=== PATIENT | female | born 2000 | race Caucasian/White ===

== ENCOUNTER 2024-12-23 08:34 | Outpatient (RCR) | payer BC, OTHER, SELFPAY ==
[2024-12-23 09:00] VITALS: BP 116/77; PULSE 104; TEMP 37; O2SAT 99
[2024-12-23] MEDS: RHO(D) IMMUNE GLOBULIN 1,500 UNIT SYRINGE 1500 UNIT IM (09:46)
== END 2024-12-30 10:25 | disposition home or self-care (01) ==
LOC: LAB 08:34
PROVIDERS: PCP Family Medicine; Visit Provider Midwife
DX: Z51.81 Encounter for therapeutic drug level monitoring (principal); O09.893 Supervision of other high risk pregnancies, third trimester; Z3A.28 28 weeks gestation of pregnancy
CPT/HCPCS: 36415; 86850; 86900; 86901; 96372; J2791

== ENCOUNTER 2025-02-26 13:30 | Inpatient (IN) | payer BC, OTHER, SELFPAY ==
[2025-02-26] VITALS (9 sets, daily range): BP systolic 109–136; BP diastolic 65–87; PULSE 80–116; TEMP 36.8
--- NOTE | 2025-02-26 13:35 | US_ITS ---
[place] [id number] Patient Name: ARON HODGES MRN: [id number] date: 2000 Sex: F Assigned Patient Location: [facility] Current Patient Location: [facility] Accession/Order Number: [id number] Exam Date: 02/26/2025 15:02 Report Date: 02/26/2025 15:03 At the request of: JUSTIN SPENCE APRN CNMarimar Procedure: US OB BPP w non-stress Ultrasound biophysical profile COMPARISON: Elevated blood pressure There is adequate breathing movement, gross body movement, tone and amniotic fluid volume for total score of 8 out of 8. The amniotic fluid index is 18.3 cm within normal limits. The heart rate is 130 bpm. US/US OB BPP w non-stress IMPRESSION: Adequate ultrasound biophysical profile Impression dictated by: Otf Hou M.D. 02/26/2025 3:03 PM Dictation Location: [employer] Electronically authenticated by: [id number] Y Date: 02/26/2025 15:03
--- OUTSIDE RECORDS SUMMARY | 2025-02-26 13:35 | XMS_ITS | CCD ---
Author Organization [facility] Care Team Providers Care Punch Hand Name Role Phone Martinez POST FORM REMOVER, Berta Jefferson Unavailable Navin WHITMAN, Marysol Stanley Primary Care Provider David CABRAL, Justin Fields Unavailable FLORO, JUSTIN Donnie Attending Unavailable FLORO, JUSTIN L Referring Unavailable FLORO, JUSTIN L Attending Unavailable FLORO, JUSTIN L Attending Unavailable FLORO, JUSTIN L Referring Unavailable FLORO, JUSTIN L Attending Unavailable PETITTI, JULIA Baer Attending Unavailable BERTA KEVIN Attending Unavailable FLORO, JUSTIN Fields Attending Unavailable PETITTI, JULIA Baer Attending Unavailable FLORO, JUSTIN L Attending Unavailable FLORO, JUSTIN L Referring Unavailable FLORO, JUSTIN L Attending Unavailable FLORO, JUSTIN L Attending Unavailable FLORO, JUSTIN L Attending Unavailable FLORO, JUSTIN L Attending Unavailable FLORO, JUSTIN L Referring Unavailable Medications Current Medications Medication Drug Class(es) Dates Sig (Normalized) Sig (Original) docusate sodium 100 mg oral capsule (10 sources) Start: 01-21-2025 End: 05-21-2025 take 1 capsule by mouth in the morning docusate sodium (Colace) 100 MG capsule Indications: Anemia during in third trimester Take 1 capsule (100 mg) by mouth in the morning and 1 capsule (100 mg) before bedtime. 60 capsule 3 01/21/2025 05/21/2025 Active ferrous sulfate 325 mg delayed release oral tablet (10 sources) Start: 01-21-2025 End: 01-21-2026 take 1 tablet by mouth in the morning ferrous sulfate (Fe Tabs) 325 (65 Fe) MG EC tablet Indications: Anemia during in third trimester Take 1 tablet (325 mg) by mouth in the morning and 1 tablet (325 mg) in the evening. Take with meals. Do not crush, chew, or split. 60 tablet 11 01/21/2025 01/21/2026 Active fluticasone propionate 0.05 mg/actuat metered dose nasal spray (2 sources) Corticosteroid Start: 11-21-2023 take 2 spray(s) nasal route in the morning fluticasone (Flonase) 50 MCG/ACT nasal spray Indications: Dysfunction of both eustachian tubes SPRAY 2 SPRAYS INTO EACH NOSTRIL IN THE MORNING SHAKE GENTLY/PRIME BEFORE 1ST USE&CLEAN TIP 48 mL 1 11/21/2023 Active Start: 10-30-2023 End: 11-21-2023 take 2 spray(s) nasal route in the morning fluticasone (Flonase) 50 MCG/ACT nasal spray Indications: Dysfunction of both eustachian tubes Administer 2 sprays into each nostril in the morning. Shake gently. Before first use, prime pump. After use, clean tip and replace cap.. 16 g 2 10/30/2023 11/21/2023 Discontinued levoFLOXacin 500 mg oral tablet (1 source) Quinolone Antimicrobial Start: 11-13-2023 End: 11-23-2023 take 1 tablet by mouth in the morning levoFLOXacin (Levaquin) 500 MG tablet Indications: Non-recurrent acute serous otitis media of left ear Take 1 tablet (500 mg) by mouth in the morning for 10 days. 10 tablet 0 11/13/2023 11/23/2023 Active Completed/Discontinued Medications Medication Drug Class(es) Dates Sig (Normalized) Sig (Original) cefuroxime 250 mg oral tablet (9 sources) Cephalosporin Antibacterial Start: 04-23-2024 End: 08-07-2024 take 1 tablet by mouth once daily cefuroxime (Ceftin) 250 MG tablet Indications: Acne vulgaris Take 1 tablet, by mouth, once daily, 30 days 30 tablet 11 04/23/2024 08/07/2024 Discontinued (Therapy completed) clindamycin 0.01 mg/mg topical gel (9 sources) Lincosamide Antibacterial Start: 04-23-2024 End: 08-07-2024 clindamycin (Clindagel) 1 % gel Indications: Acne vulgaris Apply thin layer to face, once daily in the morning, 30 day supply 60 g 11 04/23/2024 08/07/2024 Discontinued (Therapy completed) tretinoin 0.25 mg/ml topical cream (9 sources) Retinoid Start: 04-23-2024 End: 04-23-2025 tretinoin (Retin-A) 0.025 % cream Indications: Acne vulgaris Apply topically at bedtime Apply thin layer to face at bedtime 45 g 11 04/23/2024 08/07/2024 Discontinued (Therapy completed) Problems Active Problems Problem Classification Problem Date Documented Da te Episodic/Chronic Menstrual disorders (2 sources) Amenorrhea; Translations: [Amenorrhea, unspecified] 08-07-2024 Chronic Other complications of (2 sources) Finding related to ; Translations: [ related conditions, unspecified, second trimester] 09-25-2024 Episodic Other non-traumatic joint disorders (2 sources) Swollen ankle region; Translations: [Effusion, right ankle] 02-05-2025 Episodic Other non-traumatic joint disorders (2 sources) Ankle edema; Translations: [Effusion, unspecified ankle] 02-19-2025 Episodic Other conditions (2 sources) Oyegn-[id number] at regardless of gestation period; Translations: [Other heavy for gestational age ] 02-19-2025 Episodic Other and delivery including normal (20 sources) Second trimester ; Translations: [ test positive] 08-28-2024 Episodic Other screening for suspected conditions (not mental disorders or infectious disease) (4 sources) Cancer cervix screening status; Translations: [Encounter for screening for malignant neoplasm of cervix] 06-13-2024 Episodic Other skin disorders (2 sources) Acne vulgaris; Translations: [Acne vulgaris] 06-24-2024 Episodic Otitis media and related conditions (1 source) Dysfunction of bilateral eustachian tubes; Translations: [Unspecified Eustachian tube disorder, bilateral] 11-21-2023 Episodic Unclassified (20 sources) OB Reminders Onset: 08-08-2024 08-08-2024 Past or Other Problems Problem Classification Problem Date Documented Da te Episodic/Chronic NEGATED: Highlighted row has been ruled out!Unclassified (20 sources) No known active problems 06-24-2024 Results Test Name Value Interpretation Reference Range Facil ity US OB FOLLOW UP TRANSABDOMIN AL APPROACHon 01-08-2025 US OB FOLLOW UP TRANSABDOMINAL APPROACH TITLE OF EXAM: OB Ultrasound: REASON FOR EXAM: Growth. COMPARISON: 10/30/2024 TECHNIQUE: Grayscale and M-mode Doppler imaging is performed. FINDINGS: heart rate: 132 bpm DAVID: 15.2 cm (8.8-23.8) BPD: 7.6 cm HC: 27.8 cm AC: 28.3 cm FL: 6.2 cm GA for sonogram: 31.0 wk (28.6-33.5) Cervix length: 3.8 cm SHIN: 03/12/2025 Weight Estimate: Weight: 1863 gm / 4 lbs, 1 oz (8637-2216 gm) Hadlock Normal: 1759 gm (0250-3786 gm) Hadlock Wt%: 68% for 31.0 wks (GA Selected) 92% for 30.3 wks (LMP) LMP: 06/01/24 Age by LMP: 31 w 4 d Age Prior US: 21 w 4 d Age US Today: 31 w 3 d SHIN by LMP: 03/08/25 SHIN Prior US: 03/08/25 SHIN US Today: 03/09/25 Gestation: Single Position: Cephalic Placenta Location: Posterior Placental Grade: 1 Heart Rate: 132 bpm Cervical Length: 3.8 cm IMPRESSION: 1. Single intrauterine gestation in cephalic position with an estimated ultrasound age of 31 weeks 3 days. 2. Normal fluid volume. Placenta is visible posteriorly. Dictated and transcribed 01/09/25/dpd This report has been electronically signed and approved by the interpreting radiologist. Normal Not Available US OB 14+ WEEKS ANATOMY SCAN on 10-30-2024 US OB 14+ WEEKS ANATOMY SCAN TITLE OF EXAM: OB Ultrasound: REASON FOR EXAM: Growth. COMPARISON: 08/07/2024 TECHNIQUE: Grayscale and M-mode Doppler imaging is performed. FINDINGS: heart rate: 136 bpm DAVID: 14.4 cm (9.5-21.4) BPD: 5.2 cm HC: 19.2 cm AC: 16.4 cm FL: 3.6 cm GA for sonogram: 21.2 wk s (19.8-22.6) Cervix length: 4.1 cm SHIN: 03/11/2025 Weight Estimate: Weight: 425 gm / 0 lbs, 14 oz (363-487 gm) Hadlock Normal: 408 gm (338-477 gm) Hadlock Wt%: 64% for 21.1 wks ( GA selected) >97% for 20.3 wks (LMP) Placenta Location: Posterior, low lying 1.74 cm from cervix. Placental Grade: 0 Cervical Length: 4.09 cm Lateral Ventricles: Yes Cerebellum: Yes Cisterna Mag: Yes Orbits: Yes 4 Chamber heart: Yes LVOT: Yes Stomach: Yes Renals: Yes Cord Insert: Yes Heart Rate: 136 BPM 3 Vessel Cord: Yes Bladder: Yes Gender: Male 12 Long Bones: Yes Diaphragm: Yes RVOT: Yes Long Spine: Yes TRV Spine: Yes Somatic Movement: Yes IMPRESSION: Single live intrauterine with an estimated ultrasound age of 21 weeks 4 days. Low-lying posterior placenta. Normal anatomic survey as visualized. *This report is generated using voice recognition reporting (Sobrr). On occasion [employer] erroneously drops words from the report or replaces the spoken word with similar sounding words. Please call with any questions/concerns regarding this report.* Dictated and transcribed 10/30/24/dpd This report has been electronically signed and approved by the interpreting radiologist. Normal Not Available HCG ( test) Ql (U)o n 10-22-2024 Interpretation and review of laboratory results Abnormal [facility] Healthcare Preg Test, Ur Positive Negative [facility] Health care [facility] Healthcar e US OB < 14 WEEKS EARLYon US OB < 14 WEEKS EARLY TITLE OF EXAM: OB Ultrasound: REASON FOR EXAM: Dating, viability. TECHNIQUE: Grayscale imaging is performed. Measurements: heart rate: 165 bpm Sac: 4.4 cm CRL: 2.4 cm GA for sonogram: 9.1 wk (08.4-09.8) SHIN: 03/11/2025 Maternal Anatomy: Uterus: L x H x W 9.6 x 8.9 x 6.7 cm Cervix Length: 4.2 cm L x H x W (cm) Vol (cc) Ovaries: Left: 2.2 x 1.7 x 1.8 cm 3.5 CLINICAL SUMMARY: A single intrauterine is noted. heart is observed with a heart rate of 165 BPM. Yolk sac is identified and within normal limits. Dictated and transcribed 08/07/24/dpd This report has been electronically signed and approved by the interpreting radiologist. Electronically Signed Clay Carranza M.D. 2024-08-07 17:30:50 Normal Not Available HCG ( test) Ql (U)O rdered By: Fabiana Ramirez on 06-24-2024 Interpretation and review of laboratory results Normal [facility] Preg Test, Ur Negative [facility] Health care [facility] Healthcar e Vital Signs Date Time Vital Sign Value Performing Clinician Mis patel 02-19-2025 13:17-0400 Body mass index (BMI) [Ratio] 33.13 kg/m2 Justin Floro CNM Work Phone: [facility] 02-19-2025 13:17-040 Body weight 87.54 kg Justin Floro CNM Work Phone: [facility] 02-19-2025 13:17-0400 Diastolic blood pressure 80 mm[Hg] Justin Floro CNM Work Phone: [facility] 02-19-2025 13:17-0400 Systolic blood pressure 120 mm[Hg] Justin Floro CNM Work Phone: [facility] 02-05-2025 13:24-0400 Body mass index (BMI) [Ratio] 31.58 kg/m2 Justin Floro CNM Work Phone: [facility] 02-05-2025 13:24-0400 Body weight 83.46 kg Justin Floro CNM Work Phone: [facility] 02-05-2025 13:24-0400 Diastolic blood pressure 80 mm[Hg] Justin Floro CNM Work Phone: [facility] 02-05-2025 13:24-0400 Systolic blood pressure 120 mm[Hg] Justin Floro CNM Work Phone: [facility] 01-22-2025 13:17-0400 Body mass index (BMI) [Ratio] 30.21 kg/m2 Justin Floro CNM Work Phone: [facility] 01-22-2025 13:17-0400 Body weight 79.83 kg Justin Floro CNM Work Phone: [facility] 01-22-2025 13:17-0400 Diastolic blood pressure 70 mm[Hg] Justin Floro CNM Work Phone: [facility] 01-22-2025 13:17-0400 Systolic blood pressure 108 mm[Hg] Justin Floro CNM Work Phone: [facility] 11-27-2024 15:25-0500 Body mass index (BMI) [Ratio] 26.26 kg/m2 Justin Floro CNM Work Phone: [facility] 11-27-2024 15:25-0500 Body weight 69.4 kg Justin Floro CNM Work Phone: [facility] 11-27-2024 15:25-0500 Diastolic blood pressure 80 mm[Hg] Justni Floro CNM Work Phone: [facility] 11-27-2024 15:25-0500 Systolic blood pressure 120 mm[Hg] Justin Floro CNM Work Phone: [facility] 10-30-2024 10:53-0500 Body mass index (BMI) [Ratio] 24.89 kg/m2 Justin Floro CNM Work Phone: [facility] 10-30-2024 10:53-0500 Body weight 65.77 kg Justin Floro CNM Work Phone: [facility] 10-30-2024 10:53-0500 Diastolic blood pressure 70 mm[Hg] Justin Floro CNM Work Phone: [facility] 10-30-2024 10:53-0500 Systolic blood pressure 110 mm[Hg] Justin Floro CNM Work Phone: [facility] 09-25-2024 16:35-0500 Body mass index (BMI) [Ratio] 23.52 kg/m2 Justin Floro CNM Work Phone: [facility] 09-25-2024 16:35-0500 Body weight 62.14 kg Justin Floro CNM Work Phone: [facility] 09-25-2024 16:35-0500 Diastolic blood pressure 70 mm[Hg] Justin Floro CNM Work Phone: [facility] 09-25-2024 16:35-0500 Systolic blood pressure 110 mm[Hg] Justin Floro CNM Work Phone: [facility] 08-28-2024 09:04-0500 Body mass index (BMI) [Ratio] 22.31 kg/m2 Justin Floro CNM Work Phone: [facility] 08-28-2024 09:04-0500 Body weight 58.97 kg Justin Floro CNM Work Phone: [facility] 08-28-2024 09:04-0500 Diastolic blood pressure 70 mm[Hg] Justin Floro CNM Work Phone: [facility] 08-28-2024 09:04-0500 Systolic blood pressure 110 mm[Hg] Justin Floro CNM Work Phone: [facility] 06-13-2024 09:16-0400 Body mass index (BMI) [Ratio] 22.83 kg/m2 Justin Floro CNM Work Phone: [facility] 06-13-2024 09:16-0400 Body weight 60.33 kg Justin Floro CNM Work Phone: [facility] 06-13-2024 09:16-0400 Diastolic blood pressure 68 mm[Hg] Justin Floro CNM Work Phone: [facility] 06-13-2024 09:16-0400 Systolic blood pressure 110 mm[Hg] Justin Floro CNM Work Phone: [facility] Healthcare Encounters Encounter Date Encounter Type Care Provider Facility Start: 02-26-2025 End: 02-26-2025 Bamboo flowsheet Justin Donnie Floro CNM Work Phone: [facility] Start: 02-26-2025 End: 02-26-2025 Bamboo flowsheet Justin L Floro CNM Work Phone: [facility] Start: 02-19-2025 End: 02-19-2025 Bamboo flowsheet Justin L Floro CNM Work Phone: [facility] Start: 02-19-2025 End: 02-19-2025 Bamboo flowsheet Justin L Floro CNM Work Phone: [facility] Start: 02-19-2025 End: 02-19-2025 Subsequent care visit Justin L Floro CNM Work Phone: [facility] Comment on above: Encounter for prenat al care of first , third trimester (Primary Dx); screening for streptococcus B; Large for dates; Ankle edema Start: 02-19-2025 End: 02-19-2025 ambulatory JUSTIN L FLORO Not Available Start: 02-05-2025 End: 02-05-2025 Bamboo flowsheet Justin L Floro CNM Work Phone: [facility] Start: 02-05-2025 End: 02-05-2025 Bamboo flowsheet Justin L Floro CNM Work Phone: [facility] Start: 02-05-2025 End: 02-05-2025 Subsequent care visit Justin L Floro CNM Work Phone: [facility] Comment on above: Encounter for superv ision of other normal , third trimester (Primary Dx); Swelling of both ankles Start: 02-05-2025 End: 02-05-2025 ambulatory JUSTIN L FLORO Not Available Start: 01-22-2025 End: 01-22-2025 Bamboo flowsheet Justin L Floro CNM Work Phone: [facility] Start: 01-22-2025 End: 01-22-2025 Bamboo flowsheet Justin L Floro CNM Work Phone: [facility] Start: 01-22-2025 End: 01-22-2025 Subsequent care visit Justin L Floro CNM Work Phone: [facility] Comment on above: Encounter for superv ision of other normal , third trimester (Primary Dx) Start: 01-22-2025 End: 01-22-2025 ambulatory JUSTIN L FLORO Not Available Start: 01-08-2025 End: 01-08-2025 ambulatory JUSTIN L FLORO Not Available Start: 12-25-2024 End: 12-25-2024 ambulatory JUSTIN L FLORO Not Available Start: 11-27-2024 End: 11-27-2024 Subsequent care visit Justin L Floro CNM Work Phone: [facility] Comment on above: Encounter for prenat al care of first , second trimester (Primary Dx) Start: 11-27-2024 End: 11-27-2024 ambulatory JUSTIN L FLORO Not Available Start: 11-27-2024 End: 11-27-2024 Bamboo flowsheet Justin L Floro CNM Work Phone: [facility] Start: 11-27-2024 End: 11-27-2024 Bamboo flowsheet Justin L Floro CNM Work Phone: [facility] Start: 10-30-2024 End: 10-30-2024 Bamboo flowsheet Justin L Floro CNM Work Phone: [facility] Start: 10-30-2024 End: 10-30-2024 Bamboo flowsheet Justin L Floro CNM Work Phone: [facility] Start: 10-30-2024 End: 10-30-2024 Subsequent care visit Justin L Floro CNM Work Phone: [facility] Comment on above: Encounter for prenat al care of first , second trimester (Primary Dx) Start: 10-30-2024 End: 10-30-2024 ambulatory JUSTIN L FLORO Not Available Start: 09-25-2024 End: 09-25-2024 Subsequent care visit Justin Donnie Mattsono CNM Work Phone: [facility] Comment on above: Encounter for prenat al care of first , second trimester; examination or test, positive result; related condition in second trimester Start: 09-25-2024 End: 09-25-2024 ambulatory JUSTIN L FLORO Not Available Start: 09-25-2024 End: 09-25-2024 Bamboo flowsheet Justin L Floro CNM Work Phone: [facility] Start: 09-25-2024 End: 09-25-2024 Bamboo flowsheet Justin L Floro CNM Work Phone: [facility] Start: 08-28-2024 End: 08-28-2024 Bamboo flowsheet Justin L Floro CNM Work Phone: [facility] Start: 08-28-2024 End: 08-28-2024 Bamboo flowsheet Justin L Floro CNM Work Phone: [facility] Start: 08-28-2024 End: 08-28-2024 Subsequent care visit Justin Donnie Mattsono CNM Work Phone: [facility] Comment on above: Encounter for prenat al care of first , second trimester (Primary Dx); examination or test, positive result Start: 08-28-2024 End: 08-28-2024 ambulatory JUSTIN L FLORO Not Available Start: 08-07-2024 End: 08-07-2024 Bamboo flowsheet Justin L Floro CNM Work Phone: [facility] Start: 08-07-2024 End: 08-07-2024 Bamboo flowsheet Justin L Floro CNM Work Phone: [facility] Start: 08-07-2024 End: 08-07-2024 Initial care visit Justin L Floro CNM Work Phone: [facility] Comment on above: GA: 8w2d Start: 08-07-2024 End: 08-07-2024 ambulatory JUSTIN HERNANDEZ Not Available Start: 07-09-2024 End: 10-07-2024 Telephone encounter Marysol Holden MD Work Phone: [facility] Start: 06-24-2024 End: 06-24-2024 Bamboo flowsbrittany Smith MD Work Phone: [facility] Start: 06-24-2024 End: 06-24-2024 Candida Smith MD Work Phone: [facility] Start: 06-24-2024 End: 06-24-2024 Office outpatient visit 25 minutes Julia Smith MD Work Phone: [facility] Comment on above: Acne vulgaris (Prima ry Dx) Start: 06-24-2024 End: 06-24-2024 ambulatory JULIA SMITH Not Available Start: 06-13-2024 End: 06-13-2024 Bamboo flowsheet Justin Hernandez CNM Work Phone: [facility] Start: 06-13-2024 End: 06-13-2024 Bamboo flowsheet Justin Hernandez CNM Work Phone: [facility] Start: 06-13-2024 End: 06-13-2024 Gynecological examination normal Justin Hernandez CNM Work Phone: [facility] Start: 06-13-2024 End: 06-13-2024 Periodic preventive med est patient 18-39 yrs Justin Hernandez CNM Work Phone: [facility] Comment on above: Normal gynecologic e xamination; Screening for cervical cancer Start: 06-13-2024 End: 06-13-2024 ambulatory JUSTIN HERNANDEZ Not Available Start: 05-13-2024 End: 05-13-2024 ambulatory BERTA KEVIN Not Available Start: 04-23-2024 End: 04-23-2024 ambulatory JULIA SMITH Not Available Start: 11-21-2023 Refill Berta Sanchez P Work Phone: [facility] Comment on above: Dysfunction of both eustachian tubes Procedures Date Procedure Procedure Detail Performing Clinician Start: 10-22-2024 Urine test visual color cmprsn meths Justin Hernandez CNM Work Phone: Start: 06-24-2024 Urine test visual color cmprsn meths Julia Smith MD Work Phone: Plan of Treatment Date Care Activity Detail Author Start: 06-09-2025 Influenza vaccination Influenz a Vaccine (Season Ended) [facility] Start: 04-28-2025 End: 04-28-2025 Patient encounter procedure 04/28/2025 8:30 AM EDT Office Visit [facility] [address] [place] [address] Julia Smith MD [address] [place] [address] [facility] Start: 03-18-2025 End: 03-18-2025 Patient encounter procedure 03/18/2025 10:30 AM EDT Routine [facility] [address] [place] [phone] Justin Hernandez, CNM [address] [place] [address] [facility] Start: 03-12-2025 End: 03-12-2025 Patient encounter procedure 03/12/2025 10:00 AM EDT Routine [facility] [address] [place] [id number] Justin Hernandez, NAIM [address] [place] [address] [facility] Start: 03-05-2025 End: 03-05-2025 Patient encounter procedure 03/05/2025 10:00 AM EDT Routine [facility] [address] [facility] [place] [phone] Justin Hernandez, CNM [address] [facility], [place] [id number] [facility] Start: 02-26-2025 End: 02-26-2025 Professional / ancillary services management 02/26/2025 10:45 AM EDT Ancillary Procedure [facility] [address] [place] [address] [facility] Start: 02-26-2025 End: 02-26-2025 Patient encounter procedure [facility] Comment on above: Arrived Start: 02-19-2025 End: 02-19-2026 STREPTOCCOUS, GROUP B CULTURE STREPTOCCOUS, GROUP B CULTURE Lab Routine screening for streptococcus B Expected: 02/19/2025 (Approximate), Expires: 02/19/2026 [facility] Work Phone: Comment on above: Expected: 02/19/2025 (Approximate), Expires: 02/19/2026 Start: 02-19-2025 End: 02-19-2026 US for US OB follow up transabdominal approach Imaging Routine Large for dates Expected: 02/19/2025, Expires: 02/19/2026 [facility] Comment on above: Expected: 02/19/2025 , Expires: 02/19/2026 Start: 02-19-2025 End: 02-19-2025 Patient encounter procedure [facility] Comment on above: Arrived Start: 02-05-2025 End: 02-05-2025 Patient encounter procedure [facility] Comment on above: Arrived Start: 01-22-2025 End: 01-22-2025 Patient encounter procedure 01/22/2025 1:30 PM EDT Routine [facility] [address] [place] [phone] Justin Hernandez, CNM [address] [facility], [place] [id number] Arrived [facility] Comment on above: Arrived Start: 12-25-2024 End: 12-25-2024 Patient encounter procedure 12/25/2024 1:30 PM EDT Routine [facility] [address] [place] [phone] Justin Hernandez, CNM [address] [place] [address] [facility] Start: 11-27-2024 End: 11-27-2024 Patient encounter procedure [facility] Comment on above: Arrived Start: 10-30-2024 End: 10-30-2024 Professional / ancillary services management 10/30/2024 11:30 AM EST Ancillary Procedure [facility] [address] [phone] [facility] Start: 10-30-2024 End: 10-30-2024 Patient encounter procedure [facility] Comment on above: Arrived Start: 09-25-2024 End: 09-25-2024 Patient encounter procedure [facility] Comment on above: Encounter for prenat al care of first , second trimester; examination or test, positive result Start: 09-25-2024 End: 09-25-2025 US for US OB 14+ weeks anatomy scan Imaging Routine related condition in second trimester Expected: 09/25/2024, Expires: 09/25/2025 [facility] Work Phone: Comment on above: Expected: 09/25/2024 , Expires: 09/25/2025 Start: 08-28-2024 End: 08-28-2025 ABO/Rh ABO/Rh Lab Routine examination or test, positive result Expected: 08/28/2024 (Approximate), Expires: 08/28/2025 [facility] Comment on above: Expected: 08/28/2024 (Approximate), Expires: 08/28/2025 Start: 08-28-2024 End: 08-28-2025 Antibody screen Antibody screen Lab Routine examination or test, positive result Expected: 08/28/2024 (Approximate), Expires: 08/28/2025 [facility] Comment on above: Expected: 08/28/2024 (Approximate), Expires: 08/28/2025 Start: 08-28-2024 End: 08-28-2025 Bacteria identified in Urine by Culture Urine culture Microbiology Routine examination or test, positive result Expected: 08/28/2024 (Approximate), Expires: 08/28/2025 [facility] Comment on above: Expected: 08/28/2024 (Approximate), Expires: 08/28/2025 Start: 08-28-2024 End: 08-28-2025 CBC panel - Blood by Automated count CBC Lab Routine examination or test, positive result Expected: 08/28/2024 (Approximate), Expires: 08/28/2025 [facility] Comment on above: Expected: 08/28/2024 (Approximate), Expires: 08/28/2025 Start: 08-28-2024 End: 08-28-2025 DRUG TOX MONITORIGN 6 W/ CONF,URINE DRUG TOX MONITORIGN 6 W/ CONF,URINE Lab Routine examination or test, positive result Expected: 08/28/2024 (Approximate), Expires: 08/28/2025 [facility] Comment on above: Expected: 08/28/2024 (Approximate), Expires: 08/28/2025 Start: 08-28-2024 End: 08-28-2025 Hemoglobin A1c/Hemoglobin.total in Blood Hemoglobin A1c Lab Routine examination or test, positive result Expected: 08/28/2024 (Approximate), Expires: 08/28/2025 [facility] Comment on above: Expected: 08/28/2024 (Approximate), Expires: 08/28/2025 Start: 08-28-2024 End: 08-28-2025 Hepatitis B virus surface Ag [Presence] in Serum or Plasma by Immunoassay Hepatitis B surface antigen Lab Routine examination or test, positive result Expected: 08/28/2024 (Approximate), Expires: 08/28/2025 [facility] Work Phone: Comment on above: Expected: 08/28/2024 (Approximate), Expires: 08/28/2025 Start: 08-28-2024 End: 08-28-2025 Hepatitis C virus Ab [Presence] in Serum or Plasma by Immunoassay Hepatitis C antibody Lab Routine examination or test, positive result Expected: 08/28/2024 (Approximate), Expires: 08/28/2025 [facility] Comment on above: Expected: 08/28/2024 (Approximate), Expires: 08/28/2025 Start: 08-28-2024 End: 08-28-2025 HIV-1/HIV-2 antigen/antibody combination immunoassay HIV-1 and HIV-2 antibodies Lab Routine examination or test, positive result Expected: 08/28/2024 (Approximate), Expires: 08/28/2025 [facility] Comment on above: Expected: 08/28/2024 (Approximate), Expires: 08/28/2025 Start: 08-28-2024 End: 08-28-2025 Neisseria gonorrhoeae DNA [Presence] in Cervical mucus by DAVE with probe detection C. trachomatis / N. gonorrhoeae, DNA probe Pathology and Cytology Routine examination or test, positive result Expected: 08/28/2024 (Approximate), Expires: 08/28/2025 [facility] Comment on above: Expected: 08/28/2024 (Approximate), Expires: 08/28/2025 Start: 08-28-2024 End: 08-28-2025 Reagin Ab [Presence] in Serum by RPR RPR Lab Routine examination or test, positive result Expected: 08/28/2024 (Approximate), Expires: 08/28/2025 [facility] Comment on above: Expected: 08/28/2024 (Approximate), Expires: 08/28/2025 Start: 08-28-2024 End: 08-28-2025 Rubella antibody, IgG Rubella antibody, IgG Lab Routine examination or test, positive result Expected: 08/28/2024 (Approximate), Expires: 08/28/2025 [facility] Comment on above: Expected: 08/28/2024 (Approximate), Expires: 08/28/2025 Start: 08-28-2024 End: 08-28-2025 TSH W/REFLEX TO FT4 TSH W/REFLEX TO FT4 Lab Routine examination or test, positive result Expected: 08/28/2024 (Approximate), Expires: 08/28/2025 [facility] Comment on above: Expected: 08/28/2024 (Approximate), Expires: 08/28/2025 Start: 08-28-2024 End: 08-28-2025 URINALYSIS MICROSCOPIC URINALYSIS MICROSCOPIC Lab Routine examination or test, positive result Expected: 08/28/2024 (Approximate), Expires: 08/28/2025 [facility] Comment on above: Expected: 08/28/2024 (Approximate), Expires: 08/28/2025 Start: 08-28-2024 End: 08-28-2024 Patient encounter procedure 08/28/2024 8:45 AM EST Routine [facility] [address] [place] [id number] Justin Hernandez, CNM [address] [place] [address] Arrived [facility] Comment on above: Arrived Start: 08-07-2024 End: 08-07-2024 Professional / ancillary services management 08/07/2024 10:30 AM EDT Ancillary Procedure [facility] [address] [facility] [address] [place] [phone] [facility] Start: 08-07-2024 End: 08-07-2024 ambulatory 08/07/2024 10:00 AM EDT Initial [facility] [address] [place] [phone] Justin Hernandez, CNM [address] [place] [address] Arrived [facility] Comment on above: Arrived Start: 07-25-2024 End: 07-25-2024 Patient encounter procedure 07/25/2024 8:30 AM EDT Office Visit [facility] [address] [place] [id number] Julia Smith MD [address] [place] [address] [facility] Start: 06-24-2024 End: 06-24-2024 Patient encounter procedure [facility] Comment on above: Arrived Start: 06-13-2024 End: 06-13-2025 THINPREP IMAGING PAP AND HPV DNA REFLEX HPV 16,18 THINPREP IMAGING PAP AND HPV DNA REFLEX HPV 16,18 Pathology and Cytology Routine Screening for cervical cancer Expected: 06/13/2024 (Approximate), Expires: 06/13/2025 [facility] Work Phone: Comment on above: Expected: 06/13/2024 (Approximate), Expires: 06/13/2025 Start: 06-13-2024 End: 06-13-2024 Patient encounter procedure 06/13/2024 9:00 AM EDT Office Visit [facility] [address] [place] [phone] Justin Hernandez, CNM [address] [place], [place] [id number] Arrived [facility] Comment on above: Arrived Start: 06-09-2024 Influenza vaccination Influenza Vacc ine (#1) [facility] Start: 11-28-2023 End: 11-28-2023 Patient encounter procedure 11/28/2023 12:00 PM EST Office Visit [facility] [address] [place] [address] Berta Kevin NP [address] [place], [place] [phone] [facility] Start: 06-09-2023 Influenza vaccination Influenza Vacc ine (#1) [facility] Immunizations Immunization Date Immunization Notes Care Provider Fa cility 08-12-2020 influenza virus vacc ine, unspecified formulation Berta Kevin NP Work Phone: [facility] Payers Date Payer Category Payer [facility] BCBS [id number] 2021 Unknown BCBS BCBS xxxxxx [id number] 2021-Present [phone] [address] [place] [id number] 2021 Unknown [id number] 2000 Unknown [id number] 2.16840.1.836708.3.579. 2.1258 2000 Unknown [id number] 2.16840.1.736153.3.579. 2.1258 2000 Unknown [id number] 2.840.1.252077.3.579. 2.1258 2000 Unknown [id number] 2.0.1.086844.3.579. 2.1258 2000 Unknown [id number] 2.16840.1.359666.3.579. 2.1258 2000 Unknown [id number] 2.16840.1.998786.3.579. 2.1258 2000 Unknown [id number] 2.16840.1.921223.3.579. 2.1258 2000 Unknown [id number] 2.16840.1.837327.3.579. 2.1258 2000 Unknown [id number] 2.16840.1.851747.3.579. 2.1259 2000 Unknown [id number] 2.16.840.1.913836.3.579. 2.9 2000 Unknown [id number] 2.16.840.1.234767.3.579. 2.1259 2000 Unknown [id number] 2.16.840.1.047856.3.579. 2.1258 2000 Unknown [id number] 2.16.840.1.587659.3.579. 2.9 2000 Unknown [id number] 2.16.840.1.545298.3.579. 2.9 2000 Unknown [id number] 2.16.840.1.904132.3.579. 2.9 2000 Unknown [id number] 2.16.840.1.023802.3.579. 2.1259 Social History Date Type Detail Facility Start: 10-30-2023 Tobacco smoking status [facility] Never sm oked tobacco [facility] Start: 10-30-2023 Tobacco use and exposure Smoke less tobacco non-user [facility] Start: 11-13-2023 End: 06-13-2024 Alcohol intake Current drinker of alcohol (finding) [facility] Start: 10-30-2023 End: 11-13-2023 Alcohol intake [facility] Start: 10-30-2023 End: 08-07-2024 Humiliation, Afraid, Rape, and Kick questionnaire [HARK] [facility] Within the last year , have you been afraid of your partner or ex-partner? No [facility] How often do you att end meetings of the clubs or organizations you belong to? Patient refused [facility] Are you now , , , , never or living with a partner? Refused [facility] How often to you hav e a drink containing alcohol? 2-4 times a month [facility] How many standard dr inks containing alcohol do you have on a typical day? 5 or 6 [facility] How often do you hav e 6 or more drinks on 1 occasion? Less than monthly [facility] How hard is it for y ou to pay for the very basics like food, housing, medical care, and heating Not very hard [facility] Do you feel stress - tense, restless, nervous, or anxious, or unable to sleep at night because your mind is troubled all the time - these days [OSQ] Not at all [facility] (I/We) worried wheth er (my/our) food would run out before (I/we) got money to buy more. Never true [facility] Start: 2000 Sex Assigned At Female [facility] Start: 10-30-2023 Gender identity Identifies as female gender (finding) [facility] Start: 06-24-2024 End: 08-07-2024 Alcoholic beverage intake Ex-drinker (finding) [facility] Start: 06-15-2024 [facility] Goals Date Patient Goal Desired Activity /State Personal health goal Clinical Notes 11-21-2023 to 02-19-2025 Justin Hernandez, NAI - 02/19/2025 1:30 PM EDTJustin Hernandez, NAI - 02/05/2025 1:30 PM EDLuda Hernandez, NAI - 01/22/2025 1:30 PM EDTJustin Hernandez, NAI - 11/27/2024 3:30 PM EST Note Date & Type Note Facility 02-19-2025 History of Presen t illness Narrative Subjective No chief complaint on file. Karina [...] states she does elevate them. Did discuss pre-eclampsia warning signs and when she should call the office or go to the hospital. Expected mode of delivery vaginal measuring large for dates. Will order an US Follow up in 1 week for a routine visit. documented in this encounter [facility] 02-05-2025 History of Presen t illness Narrative Subjective No chief complaint on file. Karina Jones is a 24 y.o. at 34w2d with a working estimated date of delivery [...] 1 Current Her is complicated by: Swelling of hands and feet Objective Physical Exam Weight: 184 lb Expected Total Weight Gain: 25 lb-35 lb Pregravid BMI: 22.13 BP: 120/80 Patient states her legs, ankles and feet are swelling. She is on her feet for several hours a day. I did advise her to go home at night and elevate her legs and feet over the back of the couch Urine protein-negative Urine glucose-negative Assessment/Plan Diagnoses and all orders for this visit: Encounter for supervision of other normal , third trimester Swelling of both ankles Continue vitamin. Labs reviewed. GBS at 36 weeks Expected mode of delivery Follow up in 1 week for a routine visit. documented in this encounter [facility] 01-22-2025 History of Presen t illness Narrative Subjective No chief complaint on file. Karina Jones is a 24 y.o. at 32w2d with a working estimated date of delivery [...] Lv 1 Current Her is complicated by: Objective Physical Exam weight: 176 lb Expected Total Weight Gain: 25 lb-35 lb Pregravid BMI: 22.13 BP: 108/70 Urine protein-negative Urine glucose-negative Assessment/Plan Diagnoses and all orders for this visit: Encounter for supervision of other normal , third trimester Continue vitamin. Labs reviewed. GBS at 28 weeks Expected mode of delivery Follow up in 2 weeks for a routine visit. documented in this encounter [facility] 11-27-2024 History of Presen t illness Narrative Subjective No chief complaint on file. Karina Jones is a 23 y.o. at 24w2d with a working estimated date of delivery [...] Lv 1 Current Her is complicated by: The following portions of the chart were reviewed this encounter and updated as appropriate: Objective Physical Exam weight: 153 lb Expected Total Weight Gain: 25 lb-35 lb Pregravid BMI: 22.13 BP: 120/80 Urine protein-negative Urine glucose-negative Labs: reviewed Imaging Assessment/Plan Diagnoses and all orders for this visit: Encounter for care of first , second trimester Continue vitamin. Labs reviewed. Rhogam negative AB- NEEDS RHOGAM GTT AT 28 WEEKS Follow up in 2 weeks for a routine visit. documented in this encounter [facility] 10-30-2024 History of Presen t illness Narrative Subjective No chief complaint on file. Karina Jones is a 23 y.o. at 20w2d with a working estimated date of delivery [...] Lv 1 Current Her is complicated by: Rh negative The following portions of the chart were reviewed this encounter and updated as appropriate: Objective Physical Exam weight: 145 lb Expected Total Weight Gain: 25 lb-35 lb Pregravid BMI: 22.13 BP: 110/70 Urine protein-negative Urine glucose-negative Labs: reviewed Imaging Assessment/Plan Diagnoses and all orders for this visit: Encounter for care of first , second trimester Continue vitamin. Labs reviewed. Rhogam NEEDED and will schedule at 28 weeks GTT at 28 weeks Follow up in 4 weeks for a routine visit. documented in this encounter [facility] 09-25-2024 History of Presen t illness Narrative Subjective No chief complaint on file. Karina Jones is a 23 y.o. at 15w2d with a working estimated date of delivery [...] Lv 1 Current Her is complicated by: headaches The following portions of the chart were reviewed this encounter and updated as appropriate: Objective Physical Exam weight: 137 lb Expected Total Weight Gain: 25 lb-35 lb Pregravid BMI: 22.13 BP: 110/70 Urine protein-negative Urine glucose-negative Labs: reviewed Imaging Assessment/Plan Diagnoses and all orders for this visit: Encounter for care of first , second trimester - Ambulatory referral to Obstetrics / Gynecology examination or test, positive result - Ambulatory referral to Obstetrics / Gynecology related condition in second trimester - US OB 14+ weeks anatomy scan; Future Patient advised to start Magnesium 400 mg daily for headaches. Patient has a history of headaches and they're worse with this . I did want her to let me know how the magnesium does for her and if no relief we can RX fioricet. PVU Continue vitamin. Labs reviewed. Rhogam GTT . Follow up in 2 weeks for a routine visit. documented in this encounter [facility] 08-28-2024 History of Presen t illness Narrative Subjective No chief complaint on file. Karina Jones is a 23 y.o. at 12w4d with a working estimated date of delivery of 03/08/2025, by Ultrasound who presents for a routine visit. She denies vaginal bleeding, leakage of fluid, decreased movements, and contractions. OB History Para Term AB Living 1 0 0 0 0 0 SAB IAB Ectopic Multiple Live Births 0 0 0 0 0 # Outcome Date GA Lbr Ramiro/2nd Weight Sex Type Anes PTL Lv 1 Current Her is complicated by: The following portions of the chart were reviewed this encounter and updated as appropriate: Objective Physical Exam , Pregravid BMI: 22.13 Expected Total Weight Gain: 25 lb-35 lb Labs Imaging Assessment/Plan Diagnoses and all orders for this visit: Encounter for care of first , second trimester examination or test, positive result - Hepatitis B surface antigen; Future - Rubella antibody, IgG; Future - CBC; Future - Antibody screen; Future - RPR; Future - Hemoglobin A1c; Future - TSH W/REFLEX TO FT4; Future - HIV-1 and HIV-2 antibodies; Future - ABO/Rh; Future - DRUG TOX MONITORIGN 6 W/ CONF,URINE; Future - Hepatitis C antibody; Future - Urine culture; Future - URINALYSIS MICROSCOPIC; Future - C. trachomatis / N. gonorrhoeae, DNA probe; Future Urine protein Urine glucose Continue vitamin. Labs reviewed. Order placed for anatomy scan at 20 weeks. Follow up in 4 weeks for a routine visit. documented in this encounter [facility] 08-07-2024 History of Presen t illness Narrative Subjective Karina Jones is a 23 y.o. at 9w4d with a working estimated date of delivery of 03/08/2025, by Ultrasound who presents for an initial visit. This is planned. Patient Care Team: Marysol Holden MD as PCP - General (Family Medicine) Berta Kevin NP as PCP - Mauricio Hernandez CNM (Obstetrics and Gynecology) OB History Para Term AB Living 1 0 0 0 0 0 SAB IAB Ectopic Multiple Live Births 0 0 0 0 0 # Outcome Date GA Lbr Ramiro/2nd Weight Sex Type Anes PTL Lv 1 Current Her is complicated by: Patient referred by nausea Gynecology History Last Pap 06/13/24 The following portions of the chart were reviewed this encounter and updated as appropriate: @BEN([id number],TOBYESPROV)@@Li DAILEY([id number],ALGYESPROV)@@RU LAURE ARTLINK([id number],MEDYESPROV)@@KYLE ELIZABETH([id number],PROBYESPROV)@@MIKE TOLBERT K([id number],MHYESPROV)@@RULESMARTLINK([id number],SHYESPROV)@@RULESMARKRYSTENINK([id number] , FHYESPROV)@@RULESERIK([id number],SOH YESPROV)@ Review of Systems Negative except Objective Physical Exam Expected Total Weight Gain: 25 lb-35 lb Pregravid BMI: 22.13 Urine protein Urine glucose Labs Assessment/Plan Blue education folder given. Patient educated on safe medication list. Genetic testing information given. Discussed the do's and don'ts in the blue folder. We discussed labs and what we draw and what we are testing for. Patient is also informed that we do a urine drug test. Patient also given office phone number and [facility] number to call in case of an emergency or after hours needs. PVU and all questions answered. We did discuss place of delivery. [facility] all services unless an emergency and they need to go to the closest ER. We can make other arrangements possibly if patient would like to deliver at another facility but I did explain I am now at [facility] 100% of the time and would like to do all deliveries there. documented in this encounter [facility] 07-09-2024 Telephone encount er Note Pt scheduled [facility] 07-09-2024 Miscellaneous Notes Formattin g of this note might be different from the original. Pt scheduled Pt called to schedule appt with Carmen. Has taken a test and it showed positive. documented in this encounter [facility] 07-09-2024 Telephone encount er Note Pt called to schedule appt with Carmen. Has taken a test and it showed positive. [facility] 06-24-2024 History of Presen t illness Narrative Images from the original note were not included. Follow up Diagnosis: Acne Location: face, back Last visit: 2 months ago Symptoms: pimples, redness Status: not improved Treatments tried and failed: Ceftin 500 mg daily Current treatment: Ceftin 250 daily, Clindamycin gel every morning, Tretinoin cream every night All pertinent medical history, medications, and allergies were reviewed. General Exam: alert , oriented to person, place, and time , normal affect, well appearing Unaccompanied A focused exam completed based on patient reported problems, see below: 1. Acne vulgaris Head - Anterior (Face), Left Shoulder - Posterior, Right Shoulder - Posterior Scattered comedones and inflammatory pustules. Flaring today, scarring noted Patient was counseled that this condition is chronic and can be controlled, but not cured. Patient denies plans for future . Discussed treatment with isotretinoin, patient agreeable. Patient to continue with Ceftin 250 mg and topicals as prescribed for now until second test. Patient not currently on control, discussed at length need to avoid on this medication, offered to prescribe patient control, patient declined, voiced understanding of need to avoid on this medication. Reviewed side effects of isotretinoin including depression, headaches, vision changes, joint pain, lab abnormalities, risk to fetus if patient were to get , and dry skin. Discontinue and notify clinic if headaches, vision changes, or depression develop. Patient denies history of depression or personal/family history of IBD. Reviewed need to avoid due to risk of defects, reviewed need for regular appointments/lab work and need to register with the [employer] program. Do not share your medication with others and do not give blood while on this medication. Patient was registered in the [employer] program, ID # [id number]. Patient will follow up in one month to complete second test. Related Procedures POCT , urine manually resulted Related Medications cefuroxime (Ceftin) 250 MG tablet Take 1 tablet, by mouth, once daily, 30 days tretinoin (Retin-A) 0.025 % cream Apply topically at bedtime Apply thin layer to face at bedtime clindamycin (Clindagel) 1 % gel Apply thin layer to face, once daily in the morning, 30 day supply Next Visit: 1 month documented in this encounter [facility] 06-13-2024 History of Presen t illness Narrative YEARLY HPI: This is a new patient. Chief Complaint Patient presents with Gynecologic Exam Here for annual exam. 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 No pertinent past medical history. History reviewed. No pertinent surgical history. Family History Problem Relation Name Age of Onset Diabetes Maternal Grandmother Hypertension Maternal Grandmother Heart disease Maternal Grandmother Cancer Maternal Grandmother Cancer Maternal Grandfather Cancer Paternal Grandmother Cancer Paternal Grandfather Allergies: No Known Allergies Medications: Current Outpatient Medications on File Prior to Visit Medication Sig Dispense Refill cefuroxime (Ceftin) 250 MG tablet Take 1 tablet, by mouth, once daily, 30 days 30 tablet 11 clindamycin (Clindagel) 1 % gel Apply thin layer to face, once daily in the morning, 30 day supply 60 g 11 tretinoin (Retin-A) 0.025 % cream Apply topically at bedtime Apply thin layer to face at bedtime 45 g 11 No current facility-administered medications on file prior to visit. ROS: Review of Systems All other systems reviewed and are negative. There were no vitals filed for this visit. Physical exam: Physical Exam Vitals reviewed. Constitutional: Appearance: Normal appearance. HENT: Head: Normocephalic. Right Ear: Tympanic membrane normal. Left Ear: Tympanic membrane normal. Mouth/Throat: Mouth: Mucous membranes are moist. Eyes: Pupils: Pupils are equal, round, and reactive to light. Cardiovascular: Rate and Rhythm: Normal rate and regular rhythm. Pulses: Normal pulses. Heart sounds: Normal heart sounds. Pulmonary: Effort: Pulmonary effort is normal. Breath sounds: Normal breath sounds. Chest: Breasts: Right: Normal. Left: Normal. Abdominal: General: Abdomen is flat. Bowel sounds are normal. Palpations: Abdomen is soft. Tenderness: There is no abdominal tenderness. Genitourinary: General: Normal vulva. Exam position: Lithotomy position. Vagina: Normal. No tenderness. Cervix: Normal. No cervical motion tenderness. Uterus: Normal. Adnexa: Right adnexa normal and left adnexa normal. Musculoskeletal: General: Normal range of motion. Cervical back: Normal range of motion and neck supple. Skin: General: Skin is warm and dry. Neurological: General: No focal deficit present. Mental Status: She is alert and oriented to person, place, and time. Psychiatric: Mood and Affect: Mood normal. Assessment and Plan: 1. Annual exam 2. SBE discussed: Yes 3. Diet and exercise discussed: Yes 4. Wt control discussed: No 5. Safe sex discussed: Yes Karina was seen today for gynecologic exam. Diagnoses and all orders for this visit: Normal gynecologic examination Screening for cervical cancer Patient is sexually active, using no control at this time. She does not desire any control. No follow-ups on file. There are no Patient Instructions on file for this visit. Oanh Pettit MA, 06/13/2024 9:13 AM documented in this encounter [facility] 11-21-2023 Telephone encount er Note Approvals with refills [facility] 11-21-2023 Miscellaneous Notes Formattin g of this note might be different from the original. Approvals with refills documented in this encounter [facility] Healthcare Evaluation note Diagnosis Dysfunction of both eustachian tubes documented in this encounter [facility] Healthcare[facility] note* Diagnosis Encounter for care of first , second trimester- Primary examination or test, positive result documented in this encounter [facility]* Diagnosis Acne vulgaris- Primary Other acne documented in this encounter [facility]* Diagnosis Normal gynecologic examination Screening for cervical cancer Screening for malignant neoplasm of the cervix documented in this encounter [facility]* Diagnosis Encounter for care of first , second trimester examination or test, positive result related condition in second trimester documented in this encounter [facility]* Diagnosis Encounter for care of first , second trimester- Primary documented in this encounter [facility]* Diagnosis Amenorrhea Absence of menstruation [facility] Diagnosis Encounter for care of first , second trimester- Primary [facility] Diagnosis Encounter for supervision of other normal , third trimester- Primary [facility] Diagnosis Encounter for supervision of other normal , third trimester- Primary Swelling of both ankles Swelling of limb [facility] Diagnosis Encounter for care of first , third trimester- Primary screening for streptococcus B screening for Streptococcus B Large for dates Ankle edema Edema documented in this encounter [facility] N[facility]ative* Maternity Services (Routine) - Closed Specialty Diagnoses / Procedures Referred By Liliya baxter Referred To Contact Obstetrics and Gynecology Diagnoses Encounter for care of first , second trimester examination or test, positive result Procedures ID OFFICE/OUTPATIENT NEW HIGH MDM Justin Hernandez, CNM [address] [place] [address] Phone: tel: fax: Justin Hernandez, CNM [address] [place] [address] Phone: tel: fax: Referral ID Status Reason Start Date Expiration Date V isits Requested Visits Authorized [id number] Closed Specialty Services Required 08/28/2024 02/24/2025 1 1 [facility] Healthcare Summary Purpose Family History No Family History Records Found Advance Directives No Advanced Directives Records Found Additional Source Comments Reason for Visit (unrecogniz ed section and content) Reason Comments Med Change Request Reason Comments Follow-up Reason Comments Gynecologic Exam Care Teams (unrecognized sec tion and content) Punch Hand Relationship Specialty Start Date End Date Berta Kevin NP [address] [place], [place] [id number] PCP - Mauricio Vail 05/09/22 Marysol Holden MD [address] [place] [address] PCP - General Family Medicine 02/14/23 Punch Hand Relationship Specialty Start Date End Date Berta Kevin NP [address] [place] [address] PCP - [employer] 05/09/22 Marysol Holden MD [address] [place] [address] PCP - General Family Medicine 02/14/23 Justin Hernandez CNM [address] [place] [address] Obstetrics and Gynecology 07/09/24 Punch Hand Relationship Specialty Start Date End Date Berta Kevin NP [address] [place] [address] PCP - [employer] 05/09/22 Marysol Holden MD [address] [place] [address] PCP - General Family Medicine 02/14/23 Justin Hernandez CNM [address] [place] [address] Obstetrics and Gynecology 07/09/24 Punch Hand Relationship Specialty Start Date End Date Berta Kevin NP [address] [place] [address] PCP - [employer] 05/09/22 Marysol Holden MD [address] [place] [address] PCP - General Family Medicine 02/14/23 Justin Hernandez CNM [address] [place] [address] Obstetrics and Gynecology 07/09/24 Punch Hand Relationship Specialty Start Date End Date Berta Kevin NP [address] [place] [address] PCP - [employer] 05/09/22 Marysol Holden MD [address] [place] [address] PCP - General Family Medicine 02/14/23 Punch Hand Relationship Specialty Start Date End Date Berta Kevin NP [address] [place] [address] PCP - [employer] 05/09/22 Marysol Holden MD [address] [place] [address] PCP - General Family Medicine 02/14/23 Punch Hand Relationship Specialty Start Date End Date Berta Kevin NP [address] [place] [address] PCP - [employer] 05/09/22 Marysol Holden MD [address] [place] [address] PCP - General Family Medicine 02/14/23 Punch Hand Relationship Specialty Start Date End Date Berta Kevin NP [address] [place] [address] PCP - [employer] 05/09/22 Marysol Holden MD [address] [place] [address] PCP - General Family Medicine 02/14/23 Punch Hand Relationship Specialty Start Date End Date Berta Kevin NP PCP - [employer] 05/09/22 Marysol Holden MD [address] [place] [address] PCP - General Family Medicine 02/14/23 Justin Hernandez CNM [address] [place] [address] Obstetrics and Gynecology 07/09/24 Punch Hand Relationship Specialty Start Date End Date Berta Kevin NP PCP - [employer] 05/09/22 Marysol Holden MD [address] [place] [address] PCP - General Family Medicine 02/14/23 Justin Hernandez CNM [address] [place] [address] Obstetrics and Gynecology 07/09/24 Punch Hand Relationship Specialty Start Date End Date Berta Kevin NP PCP - [employer] 05/09/22 Marysol Holden MD [address] [place] [address] PCP - General Family Medicine 02/14/23 Justin Hernandez CNM [address] [place] [address] Obstetrics and Gynecology 07/09/24 Punch Hand Relationship Specialty Start Date End Date Berta Kevin NP PCP - [employer] 05/09/22 Marysol Holden MD [address] [place] [address] PCP - General Family Medicine 02/14/23 Justin Hernandez CNM [address] [place] [address] Obstetrics and Gynecology 07/09/24 Punch Hand Relationship Specialty Start Date End Date Berta Kevin NP PCP - [employer] 05/09/22 Marysol Holden MD [address] [place] [address] PCP - General Family Medicine 02/14/23 Justin Hernandez CNM [address] [place] [address] Obstetrics and Gynecology 07/09/24 Punch Hand Relationship Specialty Start Date End Date Berta Kevin NP PCP - [employer] 05/09/22 Marysol Holden MD [address] [place] [address] PCP - General Family Medicine 02/14/23 Justin Hernandez CNM [address] [place] [address] Obstetrics and Gynecology 07/09/24 Punch Hand Relationship Specialty Start Date End Date Berta Kevin NP PCP - [employer] 05/09/22 Marysol Holden MD [address] [place] [address] PCP - General Family Medicine 02/14/23 Justin Hernandez CNM [address] [place] [address] Obstetrics and Gynecology 07/09/24 Punch Hand Relationship Specialty Start Date End Date Berta Kevin NP PCP - [facility] 05/09/22 Marysol Holden MD [address] [place] [address] PCP - General Family Medicine 02/14/23 Justin Hernandez CNM [address] [place] [address] Obstetrics and Gynecology 07/09/24 Punch Hand Relationship Specialty Start Date End Date Marysol Holden MD [address] [place] [address] PCP - General Family Medicine 02/14/23 Justin Hernandez CNM [address] [place] [address] Obstetrics and Gynecology 07/09/24 Punch Hand Relationship Specialty Start Date End Date Marysol Holden MD [address] [place] [address] PCP - General Family Medicine 02/14/23 Justin Hernandez CNM [address] [place] [address] Obstetrics and Gynecology 07/09/24 Punch Hand Relationship Specialty Start Date End Date Marysol Holden MD [address] [place] [address] PCP - General Family Medicine 02/14/23 Justin Hernandez CNM [address] [place] [address] Obstetrics and Gynecology 07/09/24 INFORMATION SOURCE (unrecogn ized section and content) DATE CREATED AUTHOR 02/23/2025 [facility] FOR RECORDS PERTAINING TO PATIENTS WHO ARE OR HAVE BEEN ENROLLED IN A CHEMICAL DEPENDENCY/SUBSTANCEABUSE PROGRAM, SOME INFORMATION MAY BE OMITTED. This clinical summary was aggregated from multiple sources. Caution should be exercised in using it in the provision of clinical care. This summary normalizes information from multiple sources, and as a consequence, information in this document may materially change the coding, format and clinical context of patient data. In addition, data may be omitted in some cases. CLINICAL DECISIONS SHOULD BE BASED ON THE PRIMARY CLINICAL RECORDS. [facility] [employer] provides no warranty or guarantee of the accuracy or completeness of information in this document.
[2025-02-26 14:13] LABS: Creatinine Urine Random 19.62 mg/dL (20.00-300.00); Protein Creatinine Ratio Urine 0.41; Total Protein Urine Random 8.1 mg/dL (<=11.9)
[2025-02-26 14:13] LABS: Basophils Percent Auto 0.3 % (0.2-2.0); Eosinophils Percent Auto 0.3 % (0.9-7.0); Hematocrit 34.8 % (36.0-48.0); Hemoglobin 11.9 g/dL (12.0-16.0); Immature Granulocytes Abs Auto 0.07 10^3/uL (0.00-0.03); Immature Granulocytes Pct Auto 0.9 % (0.0-0.5); Lymphocytes Absolute Auto 1.6 10^3/uL (1.2-3.8); Lymphocytes Percent Auto 19.9 % (20.5-60.0); Mean Corpuscular HGB Conc 34.2 g/dL (29.9-35.2); Mean Corpuscular Hemoglobin 30.1 pg (26.7-34.0); Mean Corpuscular Volume 88.1 fL (81.0-99.0); Monocytes Absolute Auto 0.6 10^3/uL (0.3-0.8); Monocytes Percent Auto 7.2 % (1.7-12.0); Neutrophils Absolute Auto 5.6 10^3/uL (1.4-6.5); Neutrophils Percent Auto 71.4 % (43.0-75.0); Platelet Count 223 10^3/uL (150-450); Red Blood Count 3.95 10^6/uL (4.20-5.40); Red Cell Distribution Width 13.3 % (11.0-15.0); White Blood Count 7.9 10^3/uL (4.0-11.0)
[2025-02-26 14:29] LABS: Alanine Aminotransferase 24 U/L (14-59); Albumin Globulin Ratio 0.5; Albumin Level 2.5 g/dL (3.4-5.0); Alkaline Phosphatase 245 U/L (46-116); Anion Gap 12.3; Aspartate Amino Transferase 28 U/L (15-37); BUN Creatinine Ratio 15.8; Bilirubin Total 0.2 mg/dL (0.2-1.0); Calcium 9.5 mg/dL (8.5-10.1); Carbon Dioxide 24.4 mmol/L (21.0-32.0); Chloride 104 mmol/L (98-107); Estimated GFR (African America >60 (>=60 mL/min/1.73m^2); Estimated GFR (Non-African Ame >60 (>=60 mL/min/1.73m^2); Globulin 4.7 g/dL; Glucose 99 mg/dL (74-106); Lactate Dehydrogenase 217 U/L (81-234); Potassium 3.7 mmol/L (3.5-5.1); Sodium 137 mmol/L (136-145); Total Protein 7.2 g/dL (6.4-8.2)
[2025-02-26 14:32] LABS: Uric Acid 4.3 mg/dL (2.6-6.0)
[2025-02-27] VITALS (40 sets, daily range): BP systolic 110–194; BP diastolic 59–132; PULSE 96–151; TEMP 36.7–37.7
[2025-02-27] MEDS: LACTATED RINGER'S SOLUTION 1,000 ML 125 ML IV ×2 (02:40→03:45)
[2025-02-27 03:11] LABS: Amphetamine Screen Urine NEGATIVE (NEGATIVE); Barbiturates Screen Urine NEGATIVE (NEGATIVE); Benzodiazepines Screen Urine NEGATIVE (NEGATIVE); Buprenorphine Screen Urine NEGATIVE (NEGATIVE); Cannabinoid Screen Urine NEGATIVE (NEGATIVE); Cocaine Screen Urine NEGATIVE (NEGATIVE); Methadone Screen Urine NEGATIVE (NEGATIVE); Methamphetamines Screen Urine NEGATIVE (NEGATIVE); Opiate Screen Urine NEGATIVE (NEGATIVE); Oxycodone Screen Urine NEGATIVE (NEGATIVE); Phencyclidine Screen Urine NEGATIVE (NEGATIVE); Tricyclic Antidepressant Urine NEGATIVE (NEGATIVE)
[2025-02-27] MEDS: ROPIVACAINE HCL/PF 400 MG/200 ML PREMIX 8 MG EPIDURAL (03:40)
[2025-02-27] MEDS: ONDANSETRON PF 4 MG/2 ML VIAL IV (03:58)
[2025-02-27] MEDS: LIDOCAINE VISCOUS 2% 15 ML SOLUTION 5 ML TOPICAL (06:00)
[2025-02-27] MEDS: LIDOCAINE HCL 1% 200 MG/20 ML MDV INJ (07:05)
[2025-02-27] MEDS: OXYTOCIN/0.9 % SODIUM CHLORIDE 20 UNITS/1,000 ML PLAST..BAG 125 UNIT IV (07:29)
--- NOTE | 2025-02-27 08:27 | PM.OBHP ---
OB - H&P: HPI History of Present Illness Chief complaint: HYPERTENSION : 1 Para: 0 Comments: patient was a 24 hr OBS for rule out pre-eclampsia. Patient was staying all night for 24 hour urine collection and blood pressure checks. Her water broke on it's own at 0215 and she was 5-6/70/0 History of Present Dating criteria: LMP confirmed by 1st trimester US care: good care Ultrasounds: normal 1st trimester US and normal mid trimester US complications comment: elevated blood pressure beginning yesterday Labs Blood type: AB (+) positive Rubella: immune RPR/VDLR: nonreactive GBS status: negative HBsAG: negative Review of Systems ROS Status of ROS: 10 or more systems reviewed and unremarkable except as noted in history and below PFSH PFSH Social History Little interest or pleasure in doing things: not at all Feeling down, depressed, or hopeless: not at all Meds Home Medications and Allergies Home Medications ?Medication ?Instructions ?Recorded ?Confirmed ?Type docusate sodium 100 mg capsule 100 mg PO DAILY 02/26/25 02/26/25 History ferrous sulfate 325 mg (65 mg 325 mg PO DAILY 02/26/25 02/26/25 History iron) tablet,delayed release Allergies Allergy/AdvReac Type Severity Reaction Status Date / Time No Known Drug Allergies Allergy Verified 02/26/25 13:58 Exam Constitutional Vital Signs, click to edit/add: Last Vital Signs Temp 99.6 F 02/27/25 04:55 Pulse 141 H 02/27/25 08:20 Resp 16 02/27/25 04:55 BP 127/67 02/27/25 08:20 O2 Del Method Room Air 02/27/25 04:55 Documenting provider has reviewed patient's vital signs: yes Common normals: no apparent distress, average body habitus, oriented x3, no limitations, healthy appearing, alert and well nourished General appearance: cooperative, comfortable, well kempt and well developed Orientation/consciousness: Yes awake, Yes oriented to person, Yes oriented to place and Yes oriented to time HENMT Common normals: normocephalic Eye Common normals: EOMs intact bilaterally General eye: normal appearance of both eyes Neck & C-Spine Common normals: full ROM Lymph Lymphatic: no lymphadenopathy noted Chest Common normals: inspection of chest normal Respiratory Common normals: normal respiratory effort, no retractions, no use of accessory muscles, clear to auscultation bilaterally and percussion normal Effort & inspection: able to speak in complete sentences Auscultation: clear to auscultation bilaterally Cardio Common normals: regular rate and regular rhythm Rate: regular rate Rhythm: regular rhythm GI Common normals: Normal to inspection, nondistended, normoactive bowel sounds present Inspection: normal to inspection Auscultation: normoactive bowel sounds Palpation: soft Common normals: no CVA tenderness Back & Pelvis Common normals: no CVA tenderness Extremity Common normals: normal to inspection Neuro Common normals: oriented x3 Sensorium/orientation: awake, alert, oriented to person, oriented to place and oriented to time Psych Common normals: mental status grossly normal, thought process normal, cooperative, affect normal, speech normal, activity/motor behavior normal, denies hallucinations, denies homicidal ideation and denies suicidal ideation Attitude: calm Activity/motor behavior: appropriate eye contact Speech: normal speech Thought process: normal thought process Results Labs Labs: Short CBC 02/26/25 Range/Units 13:56 WBC 7.9 (4.0-11.0) 10^3/uL Hgb 11.9 L (12.0-16.0) g/dL Hct 34.8 L (36.0-48.0) % Plt Count 223 (150-450) 10^3/uL BMP 02/26/25 13:56 Sodium 137 Potassium 3.7 Chloride 104 Carbon Dioxide 24.4 BUN 12.0 Creatinine 0.76 Glucose 99 Calcium 9.5 Liver Function 02/26/25 Range/Units 13:56 Total Bilirubin 0.2 (0.2-1.0) mg/dL AST 28 (15-37) U/L ALT 24 (14-59) U/L Alkaline Phosphatase 245 H (46-116) U/L Albumin 2.5 L (3.4-5.0) g/dL OB - A/P Assessment and Plan (1) Elevated blood pressure affecting in third trimester, antepartum: (2) Term :
--- NOTE | 2025-02-27 08:50 | PM.OBPRCVD ---
Procedure Intrapartal events: None (elevated blood pressure since 02-26-25 ) Induction method: none Delivery monitor: external FHT and external uterine Route of delivery: Episiotomy Description: right mediolateral L&D Laceration Description: perineal - 2nd degree Delivery repair: Vicryl Estimated blood loss (mL): 450 Anesthesia type: Epidural Disposition: no change Delivery date: 02/27/25 Gender: male presentation: vertex Placental delivery description: Spontaneous cord description: 3 Vessels heart rate - 1 minute: 100 bpm or Greater respiratory effort - 1 minute: Spontaneous/Strong Cry muscle tone - 1 minute: Minimal Flexion/Extension reflex response - 1 minute: Minimal Response color - 1 minute: Bluish Hands or Feet total score - 1 minute: 7 heart rate - 5 minute: 100 bpm or Greater respiratory effort - 5 minute: Spontaneous/Strong Cry muscle tone - 5 minute: Active Movement reflex response - 5 minute: Prompt Response color - 5 minute: Bluish Hands or Feet total score - 5 minute: 9
[2025-02-27] MEDS: IBUPROFEN 600 MG TABLET PO (13:42)
[2025-02-27 13:45] LABS: Basophils Percent Auto 0.2 % (0.2-2.0); Hematocrit 27.5 % (36.0-48.0); Hemoglobin 9.4 g/dL (12.0-16.0); Immature Granulocytes Abs Auto 0.06 10^3/uL (0.00-0.03); Immature Granulocytes Pct Auto 0.5 % (0.0-0.5); Lymphocytes Percent Auto 8.1 % (20.5-60.0); Mean Corpuscular HGB Conc 34.2 g/dL (29.9-35.2); Mean Corpuscular Hemoglobin 30.5 pg (26.7-34.0); Mean Corpuscular Volume 89.3 fL (81.0-99.0); Mean Platelet Volume 10.9 fL (9.5-13.5); Monocytes Percent Auto 8.6 % (1.7-12.0); Neutrophils Percent Auto 82.6 % (43.0-75.0); Platelet Count 174 10^3/uL (150-450); Red Blood Count 3.08 10^6/uL (4.20-5.40); Red Cell Distribution Width 13.5 % (11.0-15.0); White Blood Count 12.1 10^3/uL (4.0-11.0)
[2025-02-27] MEDS: BENZOCAINE/MENTHOL 85 GRAM SPRAY BOTTLE 1 APPLIC TOPICAL (16:51)
[2025-02-27] MEDS: GLYCERIN/WITCH HAZEL PADS 1 PAD TOPICAL (16:52)
[2025-02-27] MEDS: FERROUS SULFATE 325 MG TABLET PO (21:18)
[2025-02-27] MEDS: ACETAMINOPHEN 500 MG TABLET 1000 MG PO (21:18)
[2025-02-28 01:03] VITALS: BP 121/77; PULSE 94; TEMP 36.6
[2025-02-28 06:07] LABS: Basophils Percent Auto 0.2 % (0.2-2.0); Eosinophils Percent Auto 0.3 % (0.9-7.0); Hematocrit 29.3 % (36.0-48.0); Hemoglobin 9.8 g/dL (12.0-16.0); Immature Granulocytes Abs Auto 0.12 10^3/uL (0.00-0.03); Lymphocytes Absolute Auto 2.7 10^3/uL (1.2-3.8); Mean Corpuscular HGB Conc 33.4 g/dL (29.9-35.2); Mean Corpuscular Hemoglobin 30.3 pg (26.7-34.0); Mean Corpuscular Volume 90.7 fL (81.0-99.0); Mean Platelet Volume 10.5 fL (9.5-13.5); Monocytes Absolute Auto 0.9 10^3/uL (0.3-0.8); Monocytes Percent Auto 7.2 % (1.7-12.0); Neutrophils Absolute Auto 8.6 10^3/uL (1.4-6.5); Neutrophils Percent Auto 69.3 % (43.0-75.0); Platelet Count 197 10^3/uL (150-450); Red Blood Count 3.23 10^6/uL (4.20-5.40); Red Cell Distribution Width 13.6 % (11.0-15.0); White Blood Count 12.4 10^3/uL (4.0-11.0)
[2025-02-28] MEDS: ACETAMINOPHEN 500 MG TABLET 1000 MG PO (06:24)
--- NOTE | 2025-02-28 07:48 | P.OBPN_ITS ---
OB - PN: Subj Subjective Patient comments: no complaints and pain well controlled Independence status: doing well Exam Constitutional Vital Signs, click to edit/add: Last Vital Signs Temp 97.9 F 02/28/25 01:03 Pulse 94 H 02/28/25 01:03 Resp 16 02/27/25 16:58 BP 121/77 02/28/25 01:03 O2 Del Method Room Air 02/28/25 00:30 Documenting provider has reviewed patient's vital signs: yes Common normals: no apparent distress Respiratory Common normals: normal respiratory effort and clear to auscultation bilaterally Cardio Common normals: regular rate and regular rhythm GI Common normals: Normal to inspection, nondistended, normoactive bowel sounds present Extremity Common normals: no clubbing, cyanosis or edema and no calf tenderness Results Labs Labs: Short CBC 02/27/25 02/28/25 Range/Units 13:38 05:58 WBC 12.1 H 12.4 H (4.0-11.0) 10^3/uL Hgb 9.4 L 9.8 L (12.0-16.0) g/dL Hct 27.5 L 29.3 L (36.0-48.0) % Plt Count 174 197 (150-450) 10^3/uL OB - PN: A/P Assessment and Plan (1) Elevated blood pressure affecting in third trimester, antepartum: (2) Term : Plan - Vaginal Delivery day: 1 Plan: routine care, discharge home and other (fu 2wks) Time Spent with Patient Time: Total time spent is greater than 50% in coordination of care (as documented) at patient's floor/unit and/or counseling patient: Total time spent with greater than 50% in coordination of care (as documented) at patient's floor/unit and/or counseling patient: less than 15 minutes
[2025-02-28 09:26] VITALS: BP 120/75; PULSE 104
[2025-02-28] MEDS: FERROUS SULFATE 325 MG TABLET PO ×2 (09:27→20:29)
[2025-02-28] MEDS: DOCUSATE SODIUM 100 MG CAPSULE PO ×2 (09:28→20:29)
[2025-02-28] MEDS: RHO(D) IMMUNE GLOBULIN 1,500 UNIT SYRINGE 1500 UNIT IM (09:28)
[2025-02-28 16:07] VITALS: BP 121/76; PULSE 108
[2025-02-28 16:15] VITALS: BP 121/76; PULSE 108; TEMP 37.2
[2025-02-28] MEDS: IBUPROFEN 600 MG TABLET PO (16:20)
[2025-03-01 00:44] VITALS: BP 136/85; PULSE 110; TEMP 36.5
[2025-03-01] MEDS: IBUPROFEN 600 MG TABLET PO (05:40)
--- NOTE | 2025-03-01 09:08 | PM.OBPN ---
OB - PN: Subj Subjective Patient comments: no complaints [place] status: doing well feeding status: exclusively Exam Constitutional Vital Signs, click to edit/add: Last Vital Signs Temp 97.7 F 03/01/25 00:44 Pulse 110 H 03/01/25 00:44 Resp 15 03/01/25 00:44 BP 136/85 03/01/25 00:44 O2 Del Method Room Air 03/01/25 00:44 Documenting provider has reviewed patient's vital signs: yes Common normals: no apparent distress Exam limitations: altered mental status General appearance: cooperative Nutritional appearance: cachectic Orientation/consciousness: Yes awake, Yes oriented to person, Yes oriented to place and Yes oriented to time HENMT Common normals: normocephalic Head and scalp: normal to inspection Eye Common normals: EOMs intact bilaterally General eye: normal appearance of both eyes Neck & C-Spine Common normals: full ROM General: normal visual inspection Lymph Lymphatic: no lymphadenopathy noted Chest Common normals: inspection of chest normal Respiratory Common normals: normal respiratory effort, no retractions, no use of accessory muscles, clear to auscultation bilaterally and percussion normal Effort & inspection: able to speak in complete sentences Auscultation: clear to auscultation bilaterally Cardio Common normals: regular rate and regular rhythm Rate: regular rate Rhythm: regular rhythm GI Common normals: Normal to inspection, nondistended, normoactive bowel sounds present Inspection: normal to inspection Auscultation: normoactive bowel sounds Palpation: soft Common normals: no CVA tenderness Back & Pelvis Common normals: no CVA tenderness General back: CVA tenderness Thoracic spine/upper back: normal to inspection Lumbar spine/lower back: normal to inspection Extremity Common normals: normal to inspection General: normal exam except as noted Neuro Common normals: oriented x3 Sensorium/orientation: awake, alert, oriented to person, oriented to place and oriented to time Psych Common normals: mental status grossly normal, thought process normal, cooperative, affect normal and speech normal Appearance: grossly normal Activity/motor behavior: appropriate eye contact Speech: normal speech Thought process: normal thought process OB - PN: A/P Assessment and Plan (1) Elevated blood pressure affecting in third trimester, antepartum: (2) Term : Plan - Vaginal Delivery day: 2 Plan: discharge home Time Spent with Patient Time: Total time spent is greater than 50% in coordination of care (as documented) at patient's floor/unit and/or counseling patient: Total time spent with greater than 50% in coordination of care (as documented) at patient's floor/unit and/or counseling patient: less than 15 minutes
[2025-03-01] MEDS: FERROUS SULFATE 325 MG TABLET PO (09:44)
[2025-03-01] MEDS: DOCUSATE SODIUM 100 MG CAPSULE PO (09:44)
[2025-03-01 09:46] VITALS: BP 127/60; PULSE 97
== END 2025-03-01 11:20 | disposition home or self-care (01) | DRG 807 ==
PROVIDERS: Admitting Provider Midwife; PCP Family Medicine; Visit Provider Midwife
DX: O16.4 Unspecified maternal hypertension, complicating childbirth (principal); Z37.0 Single live birth; O70.1 Second degree perineal laceration during delivery; O26.893 Other specified pregnancy related conditions, third trimester; Z67.31 Type AB blood, Rh negative; Z3A.37 37 weeks gestation of pregnancy
CPT/HCPCS: 36415; 51701; 59050; 59410; 76818; 80053; 80307; 82570; 83615; 84156; 84550; 85025; 85461; 86850; 86900; 86901; G0378; J2405; J2791; J2795

== ENCOUNTER 2025-03-05 09:14 | Outpatient (OUT) | payer BC, OTHER, SELFPAY ==
--- OUTSIDE RECORDS SUMMARY | 2025-02-19 13:30 | XMS_ITS | Encounter Summary ---
Author Organization [facility] Address [address] [place] [address] Care Team Providers Care Alarm Adjuster Name Role Phone Marysol Holden MD Primary Care Provider [phone] Erica Hernandez CNM Unavailable [phone] Encounter Details Date Type Department Care Team (Latest Contact Info) Description 02/19/2025 1:30 PM EDT Routine [facility] [address] [place] [address] Erica Hernandez, NAIM [address] [place], [place] [id number] Encounter for care of first , third trimester (Primary Dx); screening for streptococcus B; Large for dates; Ankle edema Social History Tobacco Use Types Packs/Day Years Used Date Smoking Tobacco: Never Smokeless Tobacco: Never Alcohol Use Standard Drinks/Week Comments Not Currently 3 (1 standard drink = 0.6 oz pur e alcohol) Humiliation, Afraid, Rape, and Kick questionnair e Answer Date Recorded Within the last year, have y ou been afraid of your partner or ex-partner? No 10/30/2023 Within the last year, have y ou been humiliated or emotionally abused in other ways by your partner or ex-partner? No Within the last year, have y ou been kicked, hit, slapped, or otherwise physically hurt by your partner or ex-partner? No 10/30/2023 Within the last year, have y ou been raped or forced to have any kind of sexual activity by your partner or ex-partner? No 10/30/2023 Social Connection and Isolat ion Panel [NHANES] Answer Date Recorded In a typical week, how many times do you talk on the phone with family, friends, or neighbors? More than three times a week 10/30/2023 How often do you get togethe r with friends or relatives? More than three times a week 10/30/2023 How often do you attend chur ch or uatsdin services? 1 to 4 times per year 10/30/2023 Do you belong to any clubs o r organizations such as adventism groups, unions, fraternal or athletic groups, or school groups? No 10/30/2023 How often do you attend meet ings of the clubs or organizations you belong to? Patient declined 10/30/2023 Are you , , di vorced, , never , or living with a partner? Patient declined 10/30/2023 AUDIT-C Answer Date Recorded Q1: How often do you have a drink containing alc ohol? 2-4 times a month 10/30/2023 Q2: How many drinks containi ng alcohol do you have on a typical day when you are drinking? 5 or 6 10/30/2023 Q3: How often do you have si x or more drinks on one occasion? Less than monthly 10/30/2023 Overall Financial Resource Strain (CARDIA) Answe r Date Recorded How hard is it for you to pa y for the very basics like food, housing, medical care, and heating? Not very hard 10/30/2023 [facility] Occupat ional Health - Occupational Stress Questionnaire Answer Date Recorded Do you feel stress - tense, restless, nervous, or anxious, or unable to sleep at night because your mind is troubled all the time - these days? Not at all 10/30/2023 Exercise Vital Sign Answer Date Recorde d On average, how many days pe r week do you engage in moderate to strenuous exercise (like a brisk walk)? 5 days 10/30/2023 On average, how many minutes do you engage in exercise at this level? 60 min 10/30/2023 Hunger Vital Sign Answer Date Recorded Within the past 12 months, y ou worried that your food would run out before you got the money to buy more. Never true 01/22/20 24 Within the past 12 months, t he food you bought just didn't last and you didn't have money to get more. Never true 10/30/2023 PRAPARE - Transportation Answer Date Re corded In the past 12 months, has l ack of transportation kept you from medical appointments or from getting medications? No 10/10 In the past 12 months, has l ack of transportation kept you from meetings, work, or from getting things needed for daily living? No 10/30/2023 Housing Stability Vital Sign Answer Terrell e Recorded In the last 12 months, was t here a time when you were not able to pay the mortgage or rent on time? No 10/30/2023 In the last 12 months, how many places have you lived? 1 10/30/2023 In the last 12 months, was t here a time when you did not have a steady place to sleep or slept in a alf (including now)? No 10/30/2023 Estimated Date of Delivery Comme nts Yes 03/17/2025 Based on last me nstrual period of 06/10/2024 (Exact Date) Sex and Gender Information Value Date Recorded Sex Assigned at Female 10/30/2023 11:28 AM EST Legal Sex Female 6:37 PM EDT Gender Identity Female 10/30/2023 11:28 AM EST Sexual Orientation Not on file documented as of this encounter Last Filed Vital Signs Vital Sign Reading Time Taken Comments Blood Pressure 120/80 02/19/2025 1:17 PM EDT Pulse - - Temperature - - Respiratory Rate - - Oxygen Saturation - - Inhaled Oxygen Concentration - - Weight 87.5 kg (193 lb) 02/19/2025 1:17 PM EDT Height - - Body Mass Index 33.13 05/13/2024 5:52 PM EDT documented in this encounter Progress Notes * Erica Hernandez CNM - 02/19/2025 1:30 PM EDT Subjective No chief complaint on file. Karina Jones is a 24 y.o. at 36w2d with a working estimated date of delivery of 03/17/2025, by Last Menstrual Period who presents for a routine visit. She denies vaginal bleeding, leakage of fluid, decreased movements, or contractions. OB History Para Term AB Living 1 0 0 0 0 0 SAB IAB Ectopic Multiple Live Births 0 0 0 0 0 # Outcome Date GA Lbr Ramiro/2nd Weight Sex Type Anes PTL Lv 1 Current Her is complicated by:- dependent edema Ankle and feet swelling Objective Physical Exam Weight: 193 lb Expected Total Weight Gain: 25 lb-35 lb Pregravid BMI: 22.13 BP: 120/80 Urine protein-negative Urine glucose-negative Assessment/Plan Diagnoses and all orders for this visit: screening for streptococcus B - STREPTOCCOUS, GROUP B CULTURE; Future Large for dates - US OB follow up transabdominal approach; Future Continue vitamin. Labs reviewed. GBS taken today Encouraged patient to increase oral hydration, rest and keep feet and ankles moving and elevate feet over the back of her couch when she can so her feet can be higher than her heart. PVU and states she does elevate them. Did discuss pre- eclampsia warning signs and when she should call the office orgo to the hospital. Expected mode of delivery vaginal measuring large for dates. Will order an US Follow up in 1 week for a routine visit. documented in this encounter Plan of Treatment Upcoming Encounters Date Type Department Care Team (Late st Contact Info) Description 03/13/2025 11:30 AM EDT Telemedicine [facility] [place] [phone] Erica Hernandez CNM [address] [place] [id number] documented as of this encounter Goals Goal Patient Goal Type Associated Problems Recent Progress Patient-Stated? Author Reminders Care Plan OB Reminders No Open Scheduling, Background documented as of this encounter Procedures Procedure Name Priority Date/Time Associated Diagnosis Comments STREPTOCCOUS, GROUP B CULTURE Routine 02/19/2025 3:08 PM EDT screening for streptococcus B documented in this encounter Results * US OB follow up transabdominal approach (02/26/2025 11:09 AM EDT) Anatomical Region Laterality Modality Body Ultrasound 02/26/2025 7:19 PM EDT Narrative 02/26/2025 7:19 PM EDT EXAM: OB Ultrasound: REASON FOR EXAM: LGA. COMPARISON: 01/08/2025, 10/30/2024. TECHNIQUE: Grayscale and M-mode Doppler imaging is performed. FINDINGS: heart rate: 141 bpm DAVID: 14.1 cm (7.3 - 23.9) BPD: 9.4 cm HC: 33.3 cm AC: 35.6 cm FL: 7.5 cm GA for sonogram: 38.1 wk (35.8 - 40.4) Cervix length: 3.1 cm SHIN: 03/12/2025 Weight Estimate: Weight: 3636 gm/8 lbs, 0 oz (3105 -4167 gm) Hadlock Normal: 3244 gm (2692 - 3795 gm) Hadlock Wt%: 83% for 38.0 wks (GA Selected) >97% for 37.3 wks (LMP) LMP: 06/10/24 Age by LMP: 37 w 2 d Age Prior US: 38 w 4 d Age US Today: 38 w 4 d SHIN by LMP: 03/17/25 SHIN Prior US: 03/08/25 SHIN US Today: 03/08/25 Gestation: Single Position: Cephalic Placenta Location: Fundal Placental Grade: 3 Somatic movement: Yes IMPRESSION: 1. Single live intrauterine gestation in cephalic position estimated at 38.1 weeks. This is concordant with the initial ultrasound. 2. Estimated weight is 83% for 38.0 weeks. *This report is generated using voice recognition reporting (Startupeando). On occasion [employer] erroneously drops words from the report or replaces the spoken word with similar sounding words. Please call with any questions/concerns regarding this report.* Dictated and transcribed 02/26/2025/alexis This report has been electronically signed and approved by the interpreting radiologist. Procedure Note Clay Carranza MD - 02/26/2025 EXAM: OB Ultrasound: REASON FOR EXAM: LGA. COMPARISON: 01/08/2025, 10/30/2024. TECHNIQUE: Grayscale and M-mode Doppler imaging is performed. FINDINGS: heart rate: 141 bpm DAVID: 14.1 cm (7.3 - 23.9) BPD: 9.4 cm HC: 33.3 cm AC: 35.6 cm FL: 7.5 cm GA for sonogram: 38.1 wk (35.8 - 40.4) Cervix length: 3.1 cm SHIN: 03/12/2025 Weight Estimate: Weight: 3636 gm/8 lbs, 0 oz (3105 -4167 gm) Hadlock Normal: 3244 gm (2692 - 3795 gm) Hadlock Wt%: 83% for 38.0 wks (GA Selected) >97% for 37.3 wks (LMP) LMP: 06/10/24 Age by LMP: 37 w 2 d Age Prior US: 38 w 4 d Age US Today:38 w 4 d SHIN by LMP: 03/17/25 SHIN Prior US: 03/08/25 SHIN US Today:03/08/25 Gestation: Single Position: Cephalic Placenta Location: Fundal Placental Grade: 3 Somatic movement: Yes IMPRESSION: 1. Single live intrauterine gestation in cephalic position estimated at38.1 weeks. This is concordant with the initial ultrasound. 2. Estimated weight is 83% for 38.0 weeks. *This report is generated using voice recognition reporting ([employer]).On occasion [employer] erroneously drops words from the report orreplaces the spoken word with similar sounding words. Please call with anyquestions/concerns regarding this report.* Dictated and transcribed 02/26/2025/jf This report has been electronically signed and approved by theinterpreting radiologist. us Erica TRIMBLE IMG OB US PROCEDURES Final R esult * STREPTOCCOUS, GROUP B CULTURE (02/19/2025 3:08 PM EDT) MICRO NUMBER [id number] [facility] SPECIMEN QUALITY Adequate [facility] SOURCE VAGINAL/ANOR ECTAL [facility] STATUS FINAL [facility] RESULT SEE NOTE [facility] Comment: No group B Streptococcus isolated COMMENT SEE NOTE [facility] Comment: Note per CDC guidelines optimal recovery is achieved by swabbing both the lower vagina and rectum (through the anal sphincter). 02/19/2025 3:08 PM EDT 02/19/2025 3:09 PM EDT Narrative Resulting Agency Comment Performing Organization Information Site ID: QPT Name: [facility] Address: [address] [place] [address] Director: Nabil Weston MD Erica Hernandez CNM LAB BODY FLUIDS AND STOOLS O RDERABLES Final Result [facility] documented in this encounter Visit Diagnoses Diagnosis Encounter for care of first , third trimester- Primary screening for streptococcus B screening for Streptococcus B Large for dates Ankle edema Edema Large for dates documented in this encounter Additional Health Concerns Active Problems Noted Date Diagnosed Date OB Reminders 08/08/2024 documented as of this encounter Care Teams Alarm Adjuster Relationship Specialty Start Date End Date Marysol Holden MD [address] [place] [address] PCP - General Family Medicine 02/14/23 Erica Hernandez CNM [address] [place] [address] Obstetrics and Gynecology 07/09/24 documented as of this encounter
--- OUTSIDE RECORDS SUMMARY | 2025-02-26 10:30 | XMS_ITS | Encounter Summary ---
Author Organization [facility] Address [address] [place] [address] Care Team Providers Care Hog Sticker Name Role Phone Marysol Holden MD Primary Care Provider [phone] Erica Hernandez CNM Unavailable [phone] Encounter Details Date Type Department Care Team (Latest Contact Info) Description 02/26/2025 10:30 AM EDT Routine [facility] [address] [place] [phone] Erica eHrnandez, CNM [address] [place], [place] [phone] Elevated blood pressure affecting in third trimester, antepartum (Primary Dx); Encounter for care of first , third trimester; Ankle edema; Large for dates Social History Tobacco Use Types Packs/Day Years [...] 10/30/2023 How often do you attend chur or uatsdin services? 1 to 4 times per year 10/30/2023 Do you belong to any clubs o r organizations such as rastafarian groups, unions, fraternal or athletic groups, or [...] care, and heating? Not very hard 10/30/2023 [facility] Occupat ional Health - Occupational Stress [...] the money to buy more. Never true 10/30/19 24 Within the past 12 months, t [...] place to sleep or slept in a retirement (including now)? No 10/30/2023 Estimated Date of [...] Sign Reading Time Taken Comments Blood Pressure 150/100 02/26/2025 10:43 AM EDT re check 130/90 Pulse - - Temperature - - Respiratory Rate - - Oxygen Saturation - - Inhaled Oxygen Concentration - - Weight 86.6 kg (191 lb) 02/26/2025 10:43 AM EDT Height - - Body Mass Index 32.79 05/13/2024 5:52 PM EDT documented in this encounter Progress Notes * Erica Hernandez CNM - 02/26/2025 10:30 AM EDT Subjective No chief complaint on file. Karina Jones is a 24 y.o. at 37w2d with a working estimated date of delivery [...] PTL Lv 1 Current Her is complicated by: Swelling Objective Physical Exam Weight: 191 lb Expected Total Weight Gain: 25 lb-35 lb Pregravid BMI: 22.13 BP: (!) 150/100 130/90 repeat blood pressure Urine protein-negative Urine glucose-negative Assessment/Plan Diagnoses and all orders for this visit: Elevated blood pressure affecting in third trimester, antepartum Encounter for care of first , third trimester Ankle edema Large for dates Continue vitamin. Labs reviewed. GBS negative Expected mode of delivery Follow up in 1 week for a routine visit. documented in this encounter Plan of Treatment Upcoming Encounters Date Type Department Care Team (Late st Contact Info) Description 03/13/2025 11:30 AM EDT Telemedicine [facility] [address] [place] [address] Erica Hernandez CNM [address] [place], [place] [phone] documented as of this encounter Goals Goal Patient Goal Type Associated Problems Recent Progress Patient-Stated? Author Reminders Care Plan OB Reminders No Open Scheduling, Background documented as of this encounter Visit Diagnoses Diagnosis Elevated blood pressure affecting in third trimester, antepartum- Primary Encounter for care of first , third trimester Ankle edema Edema Large for dates documented in this encounter Additional Health Concerns Active Problems Noted Date Diagnosed Date OB Reminders 08/08/2024 documented as of this encounter Care Teams Hog Sticker Relationship Specialty Start Date End Date Marysol Holden MD [facility] [place], [place] [phone] PCP - General Family Medicine 02/14/23 Erica Hernandez CNM [address] [place] [address] Obstetrics and Gynecology 07/09/24 documented as of this encounter
--- OUTSIDE RECORDS SUMMARY | 2025-02-26 10:45 | XMS_ITS | Encounter Summary ---
Author Organization [facility] Address [address] [place] [address] Care Team Providers Care Transfer Driver Name Role Phone Marysol Holden MD Primary Care Provider [phone] Erica Hernandez CNM Unavailable [phone] Encounter Details Date Type Department Care Team (Latest Contact Info) Description 02/26/2025 10:45 AM EDT Ancillary Procedure [facility] [address] [place] [address] Large for dates Social History Tobacco Use [...] often do you attend chur ch or sikhism services? 1 to 4 times per year 10/30/2023 Do you belong to any clubs o r organizations such as scientologist groups, unions, fraternal or athletic groups, or [...] care, and heating? Not very hard 10/30/2023 [facility] of Occupat ional Health - Occupational Stress [...] place to sleep or slept in a intermediate (including now)? No 10/30/2023 Estimated Date of Delivery Comme nts Yes 03/17/2025 Based on last me nstrual period of 06/10/2024 (Exact Date) Sex and Gender Information Value Date Recorded Sex Assigned at Female 10/30/2023 11:28 AM EST Legal Sex Female 6:37 PM EDT Gender Identity Female 10/30/2023 11:28 AM EST Sexual Orientation Not on file documented as of this encounter Plan of Treatment Upcoming Encounters Date Type Department Care Team (Late st Contact Info) Description 03/13/2025 11:30 AM EDT Telemedicine [facility] [address] [place] [address] Erica Hernandez, CNM [address] [place], [place] [phone] documented as of this encounter Goals Goal Patient Goal Type Associated Problems Recent Progress Patient-Stated? Author Reminders Care Plan OB Reminders No Open Scheduling, Background documented as of this encounter Procedures Procedure Name Priority Date/Time Associated Diagnosis Comments US OB FOLLOW UP TRANSABDOMINAL APPROACH Routine 02/26/2025 11:09 AM EDT Large for dates documented in this encounter Results * US [...] report is generated using voice recognition reporting (QR Artist). On occasion [employer] erroneously drops words from the report or [...] report is generated using voice recognition reporting (QR Artist).On occasion [employer] Artist erroneously drops words from the report orreplaces the spoken word with similar sounding words. Please call with anyquestions/concerns regarding this report.* Dictated and transcribed 02/26/2025/alexis This report has been electronically signed and approved by theinterpreting radiologist. us Erica Hernandez CNM IMG OB US PROCEDURES Final R esult documented in this encounter Visit Diagnoses Diagnosis Large for dates documented in this encounter Additional Health Concerns Active Problems Noted Date Diagnosed Date OB Reminders 08/08/2024 documented as of this encounter Care Teams Transfer Driver Relationship Specialty Start Date End Date Marysol Holden MD [address] [place] [address] PCP - General Family Medicine 02/14/23 Erica Hernandez CNM [address] [facility] [place] [address] Obstetrics and Gynecology 07/09/24 documented as of this encounter
--- OUTSIDE RECORDS SUMMARY | 2025-03-05 09:21 | XMS_ITS | Encounter Summary ---
Author Organization [facility] Address [address] [place] [address] Care Team Providers Care Athletic Monitor Name Role Phone Marysol Holden MD Primary Care Provider [phone] Erica Hernandez CNM Unavailable [phone] Encounter Details Date Type Department Care Team (Late st Contact Info) Description 02/26/2025 [place] flowsheet [facility] [address] [place] [address] Erica Hernandez CNM [address] [place], [place] [id number] Social History Tobacco Use Types Packs/Day Years [...] often do you attend chur ch or christianity services? 1 to 4 times per year 10/30/2023 Do you belong to any clubs o r organizations such as moravian groups, unions, fraternal or athletic groups, or [...] care, and heating? Not very hard 10/30/2023 [facility] - Occupational [...] place to sleep or slept in a fci (including now)? No 10/30/2023 Estimated Date of [...] AM EDT Telemedicine [facility] [address] [place] [address] Erica Hernandez, CNM [address] [place], [place] [id number] documented as of this encounter Goals Goal Patient Goal Type Associated Problems Recent Progress Patient-Stated? Author Reminders Care Plan OB Reminders No Open Scheduling, Background documented as of this encounter Visit Diagnoses Not on filedocumented in this encounter Additional Health Concerns Active Problems Noted Date Diagnosed Date OB Reminders 08/08/2024 documented as of this encounter Care Teams Athletic Monitor Relationship Specialty Start Date End Date Marysol Holden MD [address] [place] [id number] PCP - General Family Medicine 02/14/23 Erica Hernandez CNM [address] [place] [address] Obstetrics and Gynecology 07/09/24 documented as of this encounter
--- OUTSIDE RECORDS SUMMARY | 2025-03-05 09:21 | XMS_ITS | Encounter Summary ---
Author Organization [facility] Address [address] [place] [address] Care Team Providers Care Building Guard Deputy Sheriff Name Role Phone Marysol Holden MD Primary Care Provider [phone] Erica Hernandez CNM Unavailable [phone] Encounter Details Date Type Department Care Team (Late st Contact Info) Description 02/19/2025 [place] flowsheet [facility] [address] [place] [address] Erica Hernandez CNM [address] [place], [place] [id number] Social History Tobacco Use Types Packs/Day Years [...] often do you attend chur ch or confucianism services? 1 to 4 times per year 10/30/2023 Do you belong to any clubs o r organizations such as rastafari groups, unions, fraternal or athletic groups, or [...] care, and heating? Not very hard 10/30/2023 [facility] - Occupational Stress [...] place to sleep or slept in a senior living (including now)? No 10/30/2023 Estimated Date of [...] AM EDT Telemedicine [facility] [address] [place] [address] Erica Hernandez, CNM [address] [place], [place] [id number] documented as of this encounter Goals Goal Patient Goal Type Associated Problems Recent Progress Patient-Stated? Author Reminders Care Plan OB Reminders No Open Scheduling, Background documented as of this encounter Visit Diagnoses Not on filedocumented in this encounter Additional Health Concerns Active Problems Noted Date Diagnosed Date OB Reminders 08/08/2024 documented as of this encounter Care Teams Building Guard Deputy Sheriff Relationship Specialty Start Date End Date Marysol Holden MD [address] [place] [address] [id number] PCP - General Family Medicine 02/14/23 Erica Hernandez CNM [address] [place] [address] Obstetrics and Gynecology 07/09/24 documented as of this encounter
--- OUTSIDE RECORDS SUMMARY | 2025-03-05 09:21 | XMS_ITS | Encounter Summary ---
Author Organization [facility] Address [address] [place] [address] Care Team Providers Care Assembly Adjuster Name Role Phone Marysol Holden MD Primary Care Provider [phone] Erica Hernandez CNM Unavailable [phone] Encounter Details Date Type Department Care Team (Latest Contact Info) Description 02/20/2025 Travel Social History Tobacco Use Types Packs/Day Years [...] week 10/30/2023 How often do you attend [facility] or latter day services? 1 to 4 times per year 10/30/2023 Do you belong to any clubs o r organizations such as restorationist groups, unions, fraternal or athletic groups, or [...] care, and heating? Not very hard 10/30/2023 [facility] - Occupational [...] place to sleep or slept in a jail (including now)? No 10/30/2023 Estimated Date of [...] AM EDT Telemedicine [facility] [address] [place] [address] Erica Hernandez CNM [address] [place] [address] documented as of this encounter Goals Goal Patient Goal Type Associated Problems Recent Progress Patient-Stated? Author Reminders Care Plan OB Reminders No Open Scheduling, Background documented as of this encounter Visit Diagnoses Not on filedocumented in this encounter Additional Health Concerns Active Problems Noted Date Diagnosed Date OB Reminders 08/08/2024 documented as of this encounter Care Teams Assembly Adjuster Relationship Specialty Start Date End Date Marysol Holden MD [address] [place] [address] PCP - General Family Medicine 02/14/23 Erica Hernandez CNM [address] [place] [address] Obstetrics and Gynecology 07/09/24 documented as of this encounter
--- OUTSIDE RECORDS SUMMARY | 2025-03-05 09:21 | XMS_ITS | Encounter Summary ---
Author Organization [facility] Address [address] [place] [address] Care Team Providers Care Radiation Oncology Therapist Name Role Phone Marysol Holden MD Primary Care Provider Erica Hernandez CNM Unavailable [phone] Encounter Details Date Type Department Care Team (Late st Contact Info) Description 01/21/2025 Results Follow-Up [facility] [address] [place] [id number] Oanh Pettit MA Social History Tobacco Use Types Packs/Day Years [...] often do you attend chur ch or hinduism services? 1 to 4 times per year 10/30/2023 Do you belong to any clubs o r organizations such as yazdanism groups, unions, fraternal or athletic groups, or [...] care, and heating? Not very hard 10/30/2023 [facility] [place] of Occupat ional Health - Occupational Stress [...] place to sleep or slept in a nursing home (including now)? No 10/30/2023 Estimated Date of [...] AM EDT Telemedicine [facility] [address] [place] [id number] Erica Hernandez CNM [address] [place] [address] documented as of this encounter Goals Goal Patient Goal Type Associated Problems Recent Progress Patient-Stated? Author Reminders Care Plan OB Reminders No Open Scheduling, Background documented as of this encounter Visit Diagnoses Not on filedocumented in this encounter Additional Health Concerns Active Problems Noted Date Diagnosed Date OB Reminders 08/08/2024 documented as of this encounter Care Teams Radiation Oncology Therapist Relationship Specialty Start Date End Date Marysol Holden MD [address] [place] [address] PCP - General Family Medicine 02/14/23 Erica Hernandez CNM [address] [place] [address] Obstetrics and Gynecology 07/09/24 documented as of this encounter
--- OUTSIDE RECORDS SUMMARY | 2025-03-05 09:21 | XMS_ITS | Encounter Summary ---
Author Organization [facility] Address [address] [place] [address] Care Team Providers Care Stock Parts Inspector Name Role Phone Marysol Holden MD Primary Care Provider [phone] Erica Hernandez CNM Unavailable [phone] Encounter Details Date Type Department Care Team (Latest Contact Info) Description 02/26/2025 Travel Social History Tobacco Use Types Packs/Day [...] week 10/30/2023 How often do you attend [facility] or confucianism services? 1 to 4 times per year 10/30/2023 Do you belong to any clubs o r organizations such as jewish groups, unions, fraternal or athletic groups, or [...] care, and heating? Not very hard 10/30/2023 [facility] of Occupat ional Health - Occupational Stress [...] place to sleep or slept in a [facility] (including now)? No 10/30/2023 Estimated Date of [...] AM EDT Telemedicine [facility] [address] [place] [address] Erica Hernandez CNM [address] [place] [address] documented as of this encounter Goals Goal Patient Goal Type Associated Problems Recent Progress Patient-Stated? Author Reminders Care Plan OB Reminders No Open Scheduling, Background documented as of this encounter Visit Diagnoses Not on filedocumented in this encounter Additional Health Concerns Active Problems Noted Date Diagnosed Date OB Reminders 08/08/2024 documented as of this encounter Care Teams Stock Parts Inspector Relationship Specialty Start Date End Date Marysol Holden MD [address] [place] [address] PCP - General Family Medicine 02/14/23 Erica Hernandez CNM [address] [place] [address] Obstetrics and Gynecology 07/09/24 documented as of this encounter
--- OUTSIDE RECORDS SUMMARY | 2025-03-05 09:21 | XMS_ITS | Encounter Summary ---
Author Organization [facility] Address [address] [place] [address] Care Team Providers Care Anesthesiology Crna Name Role Phone Marysol Holden MD Primary Care Provider [phone] Erica Hernandez CNM Unavailable [phone] Encounter Details Date Type Department Care Team (Late st Contact Info) Description 03/04/2025 Patient Outreach [facility] [address] [place] [address] Marie Muhammad LPN Social History Tobacco Use Types Packs/Day Years [...] often do you attend chur ch or shinto services? 1 to 4 times per year 10/30/2023 Do you belong to any clubs o r organizations such as religious groups, unions, fraternal or athletic groups, or [...] care, and heating? Not very hard 10/30/2023 PHQ-2 Answer Date Recorded Patient Health Questionnaire-2 Score 0 03/04/2025 [facility] of Occupat ional Health - Occupational [...] place to sleep or slept in a [place] [facility] [place] (including now)? No 10/30/2023 Estimated Date of Delivery Comme nts Yes 03/17/2025 Based on last me nstrual period of 06/10/2024 (Exact Date) Sex and Gender Information Value Date Recorded Sex Assigned at Female 10/30/2023 11:28 AM EST Legal Sex Female 6:37 PM EDT Gender Identity Female 10/30/2023 11:28 AM EST Sexual Orientation Not on file documented as of this encounter Functional Status * Over the past 2 weeks, how often have you been bothered by any of the following problems? Question Answer Date of Assessment Author Little interest or pleasure in doing things Not at all 03/04/2025 12:18 PM EDT Marie Muhammad LP N Feeling down, depressed, or hopeless Not at all 03/04/2025 12:18 PM EDT Marie Muhammad LP N Patient Health Questionnaire -2 Score 0 03/04/2025 12:18 PM EDT Marie Muhammad LP N documented as of this encounter Progress Notes * Marie Muhammad LPN - 03/04/2025 12:13 PM EDT Images from the original note were not included. Flowsheet Row Patient Outreach from 03/04/2025 in [facility] with Marie Muhammad LPN Hospital Information ED, Hospital or Prison Facility Discharge? Hospital Diagnosis Discharge Date 03/01/25 Discharged To: Home Setting Discharge Hospital [facility] Engagement Call Start Time 1205 Admission Date 02/27/25 Medications Discharge medications reviewed and reconciled from hospital? Yes Is the patient having any side effects they believe may be caused by any medication additions or changes? No Does the patient have all medications ordered at discharge? Yes Nursing Interventions No intervention needed Is the patient taking all medications as directed (includes completed medication regime)? Yes Nursing Interventions Nurse provided patient education Appointments Does the patient have a primary care provider? Yes Nursing Interventions Verified appointment date/time/provider Does the patient have any upcoming specialty appointments? Yes [OB [facility] 03/13/25] Nursing Interventions Advised patient to keep appointment Self Management Patient Teaching What is the patient's perception of their health status since discharge? Improving Is the patient/caregiver able to teach back the hierarchy of who to call/visit for symptoms/problems? PCP, Specialist, Home Health nurse, Urgent Care, ED, 911 Yes Wrap Up Call End Time 1215 [facility] Complete. Call to pt. Pt reports Ibuprofen 800mg Q8PRN is controlling pain. Bleeding is a regular flow and denies clots. Bowels are regular with Colace. Pt reports she is breast feeding and has appt 03/06/25. Pt denies depression or difficulty coping at this time. Pt denies any, questions but expressed concern that baby had not had a bowel movement since discharge. Instructed pt to call or make contact with structural ironworker office after our call and inform them. Pt verbalized understanding of importance of contacting peds office. Meds reconciled,. David OB 03/13/25 documented in this encounter Plan of Treatment Upcoming Encounters Date Type Department Care Team (Late st Contact Info) Description 03/13/2025 11:30 AM EDT Telemedicine [facility] [address] [place] [address] Erica Hernandez, NAIM [address] [place] [address] documented as of this encounter Goals Goal Patient Goal Type Associated Problems Recent Progress Patient-Stated? Author Reminders Care Plan OB Reminders No Open Scheduling, Background documented as of this encounter Visit Diagnoses Diagnosis (spontaneous vaginal delivery)- Primary Normal delivery documented in this encounter Additional Health Concerns Active Problems Noted Date Diagnosed Date OB Reminders 08/08/2024 documented as of this encounter Care Teams Anesthesiology Crna Relationship Specialty Start Date End Date Marysol Holden MD [address] [place] [address] PCP - General Family Medicine 02/14/23 Erica Hernandez CNM [address] [place], [place] [phone] Obstetrics and Gynecology 07/09/24 documented as of this encounter
--- OUTSIDE RECORDS SUMMARY | 2025-03-05 09:21 | XMS_ITS | Clinical Summary ---
Author Organization [employer] Address [id number] [address] [place] [address] Care Team Providers Care Octave Board Racker Name Role Phone Marysol Holden MD Primary Care Provider [phone] Allergies No known active allergies Medications No known medications Active Problems No known active problems Family History Medical History Relation Name Comments No Known Problems Father Uterine cancer Maternal Grandmother No Known Problems Mother Cancer Paternal Grandfather Breast cancer Neg Hx Colon cancer Neg Hx Ovarian cancer Neg Hx Relation Name Status Comments Father Alive Maternal Grandmother Mother Alive Paternal Grandfather Social History Tobacco Use Types Packs/Day Years Used Date Smoking Tobacco: Never Smokeless Tobacco: Never Alcohol Use Standard Drinks/Week Comments No 0 (1 standard drink = 0.6 oz pur e alcohol) AUDIT-C Answer Date Recorded Frequency of Alcohol Consumption Never 09/23/2020 Average Number of Drinks Not on file 020 Frequency of Binge Drinking Not on file 09/08 Childcare Answer Date Recorded Childcare Unknown 03/20/2019 Employment Answer Date Recorded Employment Unknown 03/20/2019 Purpose - Life Answer Date Recorded Purpose and direction in life Unknown Comments No Sex and Gender Information Value Date Recorded Sex Assigned at Not on file Legal Sex Female 11:58 AM EDT Gender Identity Not on file Sexual Orientation Not on file Last Filed Vital Signs Vital Sign Reading Time Taken Comments Blood Pressure 108/64 01/31/2022 9:48 AM EDT Pulse - - Temperature - - Respiratory Rate - - Oxygen Saturation - - Inhaled Oxygen Concentration - - Weight 59.6 kg (131 lb 6.4 oz) 01/31/2022 9:48 A M EDT Height 160 cm (5' 3 ) 01/31/2022 9:48 AM EDT Body Mass Index 23.28 01/31/2022 9:48 AM EDT Plan of Treatment Health Maintenance Due Date Last Done Comments Depression Screening 2012 Tobacco Screening 2012 Adult BMI Screening 01/31/2023 Chlamydia Screening 01/31/2023 01/31/2022 DTaP,Tdap and Td Vaccines (7 - Td or Tdap) 03/12/2023 03/12/2013, 01/06/2006, 06/13/2002, Additional history exists COVID-19 Vaccine (2023-2 5 season) 2024 08/23/2021, 02/10/2021, 01/13/2021 Pap Smear 01/31/2025 01/31/2022 Influenza Vaccine 06/09/2025 08/12/2020 Medical Devices Not on file Procedures Procedure Name Priority Date/Time Associated Diagnosis Comments PAP SMEAR Routine 01/31/2022 12:11 PM EDT Cervical smear, as part of routine gynecological examination CHLAMYDIA/GC BY PCR MARY SWAB Routine 01/31/2022 10:42 AM EDT Screening for STD (sexually transmitted disease) from Last 3 Months or Most Recently Relevant to Health Maintenance Results * Pap Smear (01/31/2022 12:11 PM EDT) 01/31/2022 12:1 1 PM EDT 02/01/2022 12:12 PM EDT Narrative COPATH - 02/03/2022 2:42 PM EDT [facility] [address] [place] [address] Gynecologic Cytology Consultation Patient Name:ARON HODGES:2000 (Age: 21)Gender:FTaken:01/31/2022eported:02/03/2022hysician(s):Gisel Mari CNM ([phone])Copy To: Rec. #:[id number]: #[id number] Final Cytologic Interpretation ThinPrep Pap Test (Cervical): Satisfactory for evaluation. A transformation zone component is present. NEGATIVE FOR INTRAEPITHELIAL LESION OR MALIGNANCY. 02/03/2022 [facility], [address] [place], [place] [id number], License number: [id number]. Electronically Signed Out By Jassi Yee MD Date of Last Menstrual Period: 01/13/2022 Other Clinical Conditions: Z01.419 Client Service Manager exam wo/abn findings Source of Specimen ThinPrep Pap Test (Cervical) Thin Prep Pap (RACK PRODUCTION WORKER) Fee Code(s): G0145, [id number] us Gisel MOLINA PATHOLOGY/CYTOLOGY ORDER LIBIA Final Result COPATH * Chlamydia/GC by PCR Mary Swab (01/31/2022 10:42 AM EDT) Specimen source CERVICAL 5:56 PM EDT [facility] Chlamydia DNA PCR Negative Negative^N egative 02/01/2022 12:04 PM EDT [facility] Comment: Chlamydia trachomatis not detected by nucleic acid amplification. This does not exclude the possibility of infection because results are dependent on adequate specimen collection. Gonorrhea DNA PCR Negative Negative^N egative 02/01/2022 12:04 PM EDT [facility] Comment: Neisseria gonorrhoeae not detected by nucleic acid amplification. This does not exclude the possibility of infection because results are dependent on adequate specimen collection. GENS 01/31/2022 10:4 2 AM EDT 01/31/2022 10:04 PM EDT us Gisel MOLINA MICROBIOLOGY - GENERAL O RDERABLES Final Result [facility] [address] [place] [address] [facility] [address] [place] [address], [address] [place] [id number] from Last 3 Months or Most Recently Relevant to Health Maintenance Insurance ANTHEM ANTHEM ANTHEM Care Teams Octave Board Racker Relationship Specialty Start Date End Date Marysol Holden MD PCP - General Family Medicine 09/23/20
--- OUTSIDE RECORDS SUMMARY | 2025-03-05 09:21 | XMS_ITS ---
Author Organization [facility] Address [address] [place] [address] Care Team Providers Care Egg Trayer Name Role Phone Marysol Holden MD Primary Care Provider [phone] Erica Hernandez CNM Unavailable [phone] Inpatient Discharge Transitional Care Management (TCM) Status:Closed (Closed) Start date:03/01/2025 Enrollment date:03/04/2025 Enrollment reason:Identified using hospital discharge data End date:03/04/2025 Close reason:Not eligible Overview Patient discharged from [facility] on 03/01. Please contact for hospital [facility] and schedule follow-up appointment within 7-14 days. Continued Care and Services Coordination
--- OUTSIDE RECORDS SUMMARY | 2025-03-05 09:22 | XMS_ITS | Encounter Summary ---
Author Organization [employer] Address [id number] [address] [place] [address] Care Team Providers Care Spring Internship Name Role Phone Marysol Holden MD Primary Care Provider [phone] Reason for Visit * Reason Comments Med Refill Encounter Details Date Type Department Care Team (Late st Contact Info) Description 09/03/2021 Refill [facility] [address] [place] [address] Marlin Krueger, UPSET OPERATOR-DRYWALL STRIPPER [address] [place], [place] [id number] Surveillance of previously prescribed contraceptive pill Social History Tobacco Use Types Packs/Day Years [...] on file Sexual Orientation Not on file documented as of this encounter Miscellaneous Notes * Telephone Encounter - DEBORAH Marie - 09/03/2021 12:15 AM EST Patient is due for annual contraception visit on / after 09/17/22. One refill of OCPs (3 months supply) sent to pharmacy. documented in this encounter Plan of Treatment Not on file documented as of this encounter Visit Diagnoses Diagnosis Surveillance of previously prescribed contraceptive pill documented in this encounter Care Teams Spring Internship Relationship Specialty Start Date End Date Marysol Holden MD PCP - General Family Medicine 09/23/20 documented as of this encounter
--- OUTSIDE RECORDS SUMMARY | 2025-03-05 09:22 | XMS_ITS | Encounter Summary ---
Author Organization [facility] Address [address] [place] [address] Care Team Providers Care Aircraft Structural Repair Mechanic Name Role Phone Marysol Holden MD Primary Care Provider [phone] Erica HernandezM Unavailable [phone] Encounter Details Date Type Department Care Team (Late st Contact Info) Description 03/04/2025 Results Follow-Up [facility] OB [address] [place] [address] Erica Hernandez CNM [address] [place], [place] [id number] Social History Tobacco Use Types Packs/Day Years [...] often do you attend chur ch or congregation services? 1 to 4 times per year 10/30/2023 Do you belong to any clubs o r organizations such as christian groups, unions, fraternal or athletic groups, or [...] Recorded Patient Health Questionnaire-2 Score 0 03/04/2025 [facility] of Occupat ional [facility] - Occupational Stress Questionnaire Answer Date Recorded [...] LP N documented as of this encounter Plan of Treatment Upcoming Encounters Date Type Department Care Team (Late st Contact Info) Description 03/13/2025 11:30 AM EDT Telemedicine [facility] [address] [place] [address] Erica Hernandez, CNM [address] [place] [address] documented as of this encounter Goals Goal Patient Goal Type Associated Problems Recent Progress Patient-Stated? Author Reminders Care Plan OB Reminders No Open Scheduling, Background documented as of this encounter Visit Diagnoses Not on filedocumented in this encounter Additional Health Concerns Active Problems Noted Date Diagnosed Date OB Reminders 08/08/2024 documented as of this encounter Care Teams Aircraft Structural Repair Mechanic Relationship Specialty Start Date End Date Marysol Holden MD [address] [facility] [address] [place], [place] [phone] PCP - General Family Medicine 02/14/23 Erica Hernandez CNM [address] [facility] [address] [place], [place] [address] Obstetrics and Gynecology 07/09/24 documented as of this encounter
--- OUTSIDE RECORDS SUMMARY | 2025-03-05 09:22 | XMS_ITS | Encounter Summary ---
Author Organization [facility] Address [address] [place] [address] Care Team Providers Care Vacuum Closing Machine Operator Name Role Phone Marysol Holden MD Primary Care Provider [phone] Erica Hernandez CNM Unavailable [phone] Encounter Details Date Type Department Care Team (Late st Contact Info) Description 03/02/2025 Abstract [facility] [address] [place] [address] Marysol Holden MD [address] [place] [address] Social History Tobacco Use Types Packs/Day Years [...] How often do you attend chur or zoroastrian services? 1 to 4 times per year [...] Recorded Patient Health Questionnaire-2 Score 0 03/04/2025 [facility] of Occupat ional Health - Occupational Stress [...] place to sleep or slept in a halfway (including now)? No 10/30/2023 Estimated Date of [...] 11:30 AM EDT Telemedicine [facility] [address] [place] [address] Erica Hernandez, NAIM [address] [place] [address] documented as of this encounter Goals Goal Patient Goal Type Associated Problems Recent Progress Patient-Stated? Author Reminders Care Plan OB Reminders No Open Scheduling, Background documented as of this encounter Visit Diagnoses Not on filedocumented in this encounter Additional Health Concerns Active Problems Noted Date Diagnosed Date OB Reminders 08/08/2024 documented as of this encounter Care Teams Vacuum Closing Machine Operator Relationship Specialty Start Date End Date Marysol Holden MD [address] [place] [address] PCP - General Family Medicine 02/14/23 Erica Hernandez CNM [address] [place] [address] Obstetrics and Gynecology 07/09/24 documented as of this encounter
--- OUTSIDE RECORDS SUMMARY | 2025-03-05 09:22 | XMS_ITS | Encounter Summary ---
Author Organization [facility] Address [address] [place] [address] Care Team Providers Care Fiber Optic Assembly Worker Name Role Phone Marysol Holden MD Primary Care Provider [phone] Erica Hernandez CNM Unavailable [phone] Encounter Details Date Type Department Care Team (Late st Contact Info) Description 02/27/2025 [facility] Result Encounter [facility] External Department Unsolicited Erica Hernandez, MARIANNA [address] [place], [place] [id number] Social History Tobacco Use Types Packs/Day Years [...] often do you attend chur ch or evangelical services? 1 to 4 times per year 10/30/2023 Do you belong to any clubs o r organizations such as congregational groups, unions, fraternal or athletic groups, or [...] care, and heating? Not very hard 10/30/2023 [facility] of Occupat ional Health - Occupational Stress [...] AM EDT Telemedicine [facility] [address] [place] [address] Erica Hernandez, CNM [address] [place] [address] documented as of this encounter Goals Goal Patient Goal Type Associated Problems Recent Progress Patient-Stated? Author Reminders Care Plan OB Reminders No Open Scheduling, Background documented as of this encounter Procedures Procedure Name Priority Date/Time Associated Diagnosis Comments ALL CBC WITH AUTO DIFF Routine 02/27/2025 1:38 PM EDT documented in this encounter Results * (ABNORMAL) ALL CBC WITH AUTO DIFF (02/27/2025 1:38 PM EDT) [facility] WBC 12.1(H) 4.0 - 11.0 10 3/uL [facility]H TBH RBC 3.08(L) 4.20 - 5.40 10 6/uL TBH TBH HGB 9.4(L) 12.0 - 16.0 g/dL TBH TBH HCT 27.5(L) 36.0 - 48.0 % TBH [facility]H MCV 89.3 81.0 - 99.0 fL TBH TBH MCH 30.5 26.7 - 34.0 pg TBH TBH MCHC 34.2 29.9 - 35.2 g/dL TBH TBH RDW 13.5 11.0 - 15.0 % TBH TBH PLT 174 150 - 450 10 3/uL TBH TBH MPV 10.9 9.5 - 13.5 fL TBH NEUTROPHILS PERCENT AUTO 82.6(H) 43.0 - 75.0 % TB[facility] LYMPHOCYTES PERCENT AUTO 8.1(L) 20.5 - 60.0 % [facility] MONOCYTES PERCENT AUTO 8.6 1.7 - 12.0 % TBH TBH EO % 0.0(L) 0.9 - 7.0 % [facility] BASOPHILS PERCENT AUTO 0.2 0.2 - 2.0 % [facility] IMMATURE GRANULOCYTES PCT AUTO 0.5 0.0 - 0.5 % TB[facility] NEUTROPHILS ABSOLUTE AUTO 10.0(H) 1.4 - 6.5 10 3/uL [facility] LYMPHOCYTES ABSOLUTE AUTO 1.0(L) 1.2 - 3.8 10 3/uL [facility] MONOCYTES ABSOLUTE AUTO 1.0(H) 0.3 - 0.8 10 3/uL TBH TBH EO # 0.0 0.0 - 0.7 10 3/uL TB[facility] BASOPHILS ABSOLUTE AUTO 0.0 0.0 - 0.1 10 3/uL [facility] IMMATURE GRANULOCYTES ABS AUTO 0.06(H) 0.00 - 0.03 10 3/uL [facility] 02/27/2025 1:38 PM EDT 02/27/2025 1:42 PM EDT Narrative [facility] - 02/27/2025 1:46 PM EDT us Erica Donnie Mattsono CNM [facility] Final Result [facility] documented in this encounter Visit Diagnoses Not on filedocumented in this encounter Additional Health Concerns Active Problems Noted Date Diagnosed Date OB Reminders 08/08/2024 documented as of this encounter Care Teams Fiber Optic Assembly Worker Relationship Specialty Start Date End Date Marysol Holden MD [address] [place], [place] [address] PCP - General Family Medicine 02/14/23 Erica Hernandez CNM [address] [place], [place] [id number] Obstetrics and Gynecology 07/09/24 documented as of this encounter
--- OUTSIDE RECORDS SUMMARY | 2025-03-05 09:22 | XMS_ITS | Encounter Summary ---
Author Organization [facility] Address [address] [place] [address] Care Team Providers Care Fitness Trainer Name Role Phone Nick Pizarro MD Primary Care Provider [phone] Justin Hernandez CNM Unavailable [phone] Encounter Details Date Type Department Care Team (Late st Contact Info) Description 02/26/2025 Clinisync Result Encounter [facility] External Department Unsolicited Justin Hernandez, MARIANNA [address] [place], [place] [id number] Social History Tobacco Use Types Packs/Day Years [...] often do you attend chur ch or baptist services? 1 to 4 times per year 10/30/2023 Do you belong to any clubs o r organizations such as mormonism groups, unions, fraternal or athletic groups, or [...] care, and heating? Not very hard 10/30/2023 [facility] [place] of Occupat ional Health - Occupational Stress [...] place to sleep or slept in a assisted (including now)? No 10/30/2023 Estimated Date of [...] AM EDT Telemedicine [facility] [address] [place] [id number] Justin Hernandez, CNM [address] [place] [address] documented as of this encounter Goals Goal Patient Goal Type Associated Problems Recent Progress Patient-Stated? Author Reminders Care Plan OB Reminders No Open Scheduling, Background documented as of this encounter Procedures Procedure Name Priority Date/Time Associated Diagnosis Comments US OB BPP W NON-STRESS 02/26/2025 3:03 PM EDT TB DRUG SCREEN RAPID (URINE) Routine 02/26/2025 1:40 PM EDT documented in this encounter Results * US OB BPP W NON-STRESS (02/26/2025 3:03 PM EDT) Anatomical Region Laterality Modality Other 02/26/2025 3:03 PM EDT Narrative 02/26/2025 3:05 PM EDT [address] [address] Ultrasound Report Signed Patient: ARON HODGES MR#: [id number] : 2000 Acct:[id number] Age/Sex: 24 / F ADM Date: Loc: [facility] 254-[address]: JUSTIN HERNANDEZ APRN, CNM Ordering Physician: JUSTIN HERNANDEZ APRN, CNM Date of Service: 02/26/25 Procedure(s): US OB BPP w non-stress Accession Number(s): [id number] cc: NICK PIZARRO ; JUSTIN HERNANDEZ APRN, CNM [address] [address] Patient Name: ARON HODGES MRN: [facility]:[id number] date: 2000 Sex: F Assigned Patient Location: [facility] Current Patient Location: [facility] Accession/Order Number: [id number] Exam Date: 02/26/2025 15:02 Report Date: 02/26/2025 15:03 At the request of: JUSTIN HERNANDEZ APRN, CNM Procedure: US OB BPP w non-stress Ultrasound biophysical profile COMPARISON: Elevated blood pressure There is adequate breathing movement, gross body movement, tone and amniotic fluid volume for total score of 8 out of 8. The amniotic fluid index is 18.3 cm within normal limits. The heart rate is 130 bpm. US/US OB BPP w non-stress IMPRESSION: Adequate ultrasound biophysical profile Impression dictated by: Otf Hou M.D. 02/26/2025 3:03 PM Dictation Location: [place] [address] Electronically authenticated by: [id number] Y Date: 02/26/2025 15:03 Dictated By: Otf Hou D.O. Signed By: 02/26/25 1505 DD/ 1503 TD/TT: Vacuum Form Operator: Procedure Note Radiology, Radiologist, - 02/26/2025 [facility] [place] [id number] Ultrasound Report Signed Patient: ARON HODGES NMR#: [id number] : 2000Acct:[id number] Age/Sex: 24 / FADM Date: Loc: [facility] 254-[address]: JUSTIN HERNANDEZ APRN, CNM Ordering Physician: JUSTIN HERNANDEZ APRN, CNM Date of Service: 02/26/25 Procedure(s): US OB BPP w non-stress Accession Number(s): [id number] cc: NICK PIZARRO ; JUSTIN HERNANDEZ APRN, CNM [facility] [place] [id number] Patient Name: ARON HODGES MRN: [id number] date: 2000 Sex: F Assigned Patient Location: [facility] Current Patient Location: [facility] Accession/Order Number: [id number] Exam Date: 02/26/2025 15:02 Report Date: 02/26/2025 15:03 At the request of: JUSTIN HERNANDEZ APRN, CNM Procedure: US OB BPP w non-stress Ultrasound biophysical profile COMPARISON: Elevated blood pressure There is adequate breathing movement, gross body movement, fetaltone and amniotic fluid volume for total score of 8 out of 8. The amnioticfluid index is 18.3 cm within normal limits. The heart rate is 130 bpm. US/US OB BPP w non-stress IMPRESSION: Adequate ultrasound biophysical profile Impression dictated by: Otf Hou M.D. 02/26/2025 3:03 PM Dictation Location: [place] [address] Electronically authenticated by: [id number] Y Date: 5:03 Dictated By: Otf Hou D.O. Signed By:02/26/25 1509 DD/ 1503 TD/TT: Vacuum Form Operator: us Justin Hernandez CNM [facility] IMAGING Final Resu lt * TBH DRUG SCREEN RAPID (URINE) (02/26/2025 1:40 PM EDT) Pathologist [facility] CANNABINOID SCREEN URINE NEGATIVE NEGATIVE TBH PHENCYCLIDINE SCREEN URINE NEGATIVE NEGATIVE TBH COCAINE SCREEN URINE NEGATIVE NEGATIVE TBH METHAMPHETAMINES SCREEN URINE NEGATIVE NEGATIVE TBH OPIATE SCREEN URINE NEGATIVE NEGATIVE TBH AMPHETAMINE SCREEN URINE NEGATIVE NEGATIVE TBH BENZODIAZEPINES SCREEN URINE NEGATIVE NEGATIVE TBH TRICYCLIC ANTIDEPRESSANT URINE NEGATIVE NEGATIVE TBH METHADONE SCREEN URINE NEGATIVE NEGATIVE TBH BARBITURATES SCREEN URINE NEGATIVE NEGATIVE TBH OXYCODONE SCREEN URINE NEGATIVE NEGATIVE TBH BUPRENORPHINE SCREEN URINE NEGATIVE NEGATIVE TBH Comment: DRUG CLASS TEST SYSTEM CUT-OFF CONCENTRATIONS ARE FOLLOWS: AMP (Amphetamine): 500 ng/mL BAR (Barbiturates): 200 ng/mL BZO (Benzodiazepines): 150 ng/mL BUP (Buprenorphine): 10 ng/mL BHPUENDRA (Cocaine): 150 ng/mL mAMP (Methamphetamine): 500 ng/mL MTD (Methadone): 200 ng/mL OPI (Opiates): 100 ng/mL OXY (Oxycodone): 100 ng/mL PCP (Phencyclidine): 25 ng/mL THC (Cannabinoids): 50 ng/mL TCA (Trycyclic Antidepressants): 300 ng/mL 02/26/2025 1:40 PM EDT 02/27/2025 2:54 AM EDT Narrative CLIN[facility] - 02/27/2025 3:11 AM EDT us Justin Hernandez CNM CLINISYY[facility]Y Final Result Performing Organization Address City/State/[facility] Co de Phone Number [facility] documented in this encounter Visit Diagnoses Not on filedocumented in this encounter Additional Health Concerns Active Problems Noted Date Diagnosed Date OB Reminders 08/08/2024 documented as of this encounter Care Teams Fitness Trainer Relationship Specialty Start Date End Date Nick Pizarro MD [address] [place] [address] PCP - General Family Medicine 02/14/23 Justin Hernandez CNM [address] [place] [address] Obstetrics and Gynecology 07/09/24 documented as of this encounter
--- OUTSIDE RECORDS SUMMARY | 2025-03-05 09:22 | XMS_ITS | Encounter Summary ---
Author Organization [facility] Address [address] [place] [address] Care Team Providers Care Shotblast Operator Name Role Phone Marysol Holden MD Primary Care Provider [phone] Erica Hernandez CNM Unavailable [phone] Encounter Details Date Type Department Care Team (Late st Contact Info) Description 02/26/2025 Clinisync Result Encounter [facility] External Department Unsolicited Erica Hernandez, MARIANNA [address] [place], [place] [id number] Social History Tobacco Use Types Packs/Day Years [...] often do you attend chur ch or temple services? 1 to 4 times per year 10/30/2023 Do you belong to any clubs o r organizations such as hinduism groups, unions, fraternal or athletic groups, or [...] care, and heating? Not very hard 10/30/2023 [facility] [place] of Occupat ional Health - Occupational Stress [...] place to sleep or slept in a detention (including now)? No 10/30/2023 Estimated Date of [...] AM EDT Telemedicine [facility] [address] [place] [address] Erica Hernandez, CNM [address] [place] [address] documented as of this encounter Goals Goal Patient Goal Type Associated Problems Recent Progress Patient-Stated? Author Reminders Care Plan OB Reminders No Open Scheduling, Background documented as of this encounter Procedures Procedure Name Priority Date/Time Associated Diagnosis Comments [facility] CMP (CMP) (FOR REMOTE [facility] USE) Routine 02/26/2025 1:56 PM EDT ALL URIC ACID Routine 02/26/2025 1:56 PM EDT ALL LDH Routine 02/26/2025 1:56 PM EDT ALL CBC WITH AUTO DIFF Routine 02/26/2025 1:56 PM EDT TBH URINE T PROTEIN CREAT RATIO Routine 02/26/2025 1:40 PM EDT documented in this encounter Results * ALL URIC ACID (02/26/2025 1:56 PM EDT) URIC ACID 4.3 2.6 - 6.0 mg/dL TB 02/26/2025 1:56 PM EDT 02/26/2025 2:09 PM EDT Narrative CLIN[facility]NC - 02/26/2025 2:32 PM EDT Erica L [employer] CN CLIN[facility]NC Final Result Performing Organization Address City/[facility]/ZIP Co de Phone Number CL[facility] TB * ALL LDH (02/26/2025 1:56 PM EDT) LACTATE DEHYDROGENASE 217 81 - 234 U/L TB 02/26/2025 1:56 PM EDT 02/26/2025 2:09 PM EDT Narrative CLIN[facility]YNC - 02/26/2025 2:31 PM EDT Erica [employer] [facility] CN CLIN[facility]YNC Final Result Performing Organization Address [facility]/ZIP Co de Phone Number CL[facility] TB * (ABNORMAL) [facility] CMP (CMP) (FOR REMOTE [facility] USE) (02/26/2025 1:56 PM EDT) SODIUM 137 136 - 145 mmol/L TBH POTASSIUM 3.7 3.5 - 5.1 mmol/L TBH CHLORIDE 104 98 - 107 mmol/L TBH CARBON DIOXIDE 24.4 21.0 - 32.0 mmol/L TBH ANION GAP 12.3 TBH GLUCOSE 99 74 - 106 mg/dL TB BLOOD UREA NITROGEN 12.0 7.0 - 18.0 mg/dL TBH CREATININE 0.76 0.55 - 1.02 mg/dL TBH TBH EGFR-AF CUBAN >60 >=60 mL/min/1. 73m 2 TBH TBH EGFR-NON AF CUBAN >60 >=60 mL/min/1. 73m 2 TBH BUN CREATININE RATIO 15.8 TBH CALCIUM 9.5 8.5 - 10.1 mg/dL TBH BILIRUBIN TOTAL 0.2 0.2 - 1.0 mg/dL TBH ASPARTATE AMINO TRANSFERASE 28 15 - 37 U/L TBH ALANINE AMINOTRANSFERASE 24 14 - 59 U/L TBH ALKALINE PHOSPHATASE 245(H) 46 - 116 U/L TBH TOTAL PROTEIN 7.2 6.4 - 8.2 g/dL TBH ALBUMIN LEVEL 2.5(L) 3.4 - 5.0 g/dL TBH GLOBULIN 4.7 g/dL TBH ALBUMIN GLOBULIN RATIO 0.5 TBH 02/26/2025 1:56 PM EDT 02/26/2025 2:09 PM EDT Narrative CLINISYNC - 02/26/2025 2:31 PM EDT us Erica Hernandez CNM CLIN[facility]NC Final Result [facility] * (ABNORMAL) ALL CBC WITH AUTO DIFF (02/26/2025 1:56 PM EDT) TB WBC 7.9 4.0 - 11.0 10 3/uL TBH TBH RBC 3.95(L) 4.20 - 5.40 10 6/uL TBH TBH HGB 11.9(L) 12.0 - 16.0 g/dL TBH TBH HCT 34.8(L) 36.0 - 48.0 % TBH TBH MCV 88.1 81.0 - 99.0 fL TBH TBH MCH 30.1 26.7 - 34.0 pg TBH TBH MCHC 34.2 29.9 - 35.2 g/dL TBH TBH RDW 13.3 11.0 - 15.0 % TBH TBH PLT 223 150 - 450 10 3/uL TBH TBH MPV 11.0 9.5 - 13.5 fL TBH NEUTROPHILS PERCENT AUTO 71.4 43.0 - 75.0 % TBH LYMPHOCYTES PERCENT AUTO 19.9(L) 20.5 - 60.0 % TBH MONOCYTES PERCENT AUTO 7.2 1.7 - 12.0 % TBH TBH EO % 0.3(L) 0.9 - 7.0 % TBH BASOPHILS PERCENT AUTO 0.3 0.2 - 2.0 % TBH IMMATURE GRANULOCYTES PCT AUTO 0.9(H) 0.0 - 0.5 % TBH NEUTROPHILS ABSOLUTE AUTO 5.6 1.4 - 6.5 10 3/uL TBH LYMPHOCYTES ABSOLUTE AUTO 1.6 1.2 - 3.8 10 3/uL TBH MONOCYTES ABSOLUTE AUTO 0.6 0.3 - 0.8 10 3/uL TBH TBH EO # 0.0 0.0 - 0.7 10 3/uL TBH BASOPHILS ABSOLUTE AUTO 0.0 0.0 - 0.1 10 3/uL TBH IMMATURE GRANULOCYTES ABS AUTO 0.07(H) 0.00 - 0.03 10 3/uL TBH 02/26/2025 1:56 PM EDT 02/26/2025 2:09 PM EDT Narrative CLINISYNC - 02/26/2025 2:17 PM EDT Erica Hernandez [facility] CLINIS[facility]NC Final Result Performing Organization Address City/[facility] Co de Phone Number CLIN[facility]NC TB * (ABNORMAL) TBH URINE T PROTEIN CREAT RATIO (02/26/2025 1:40 PM EDT) TOTAL PROTEIN URINE RANDOM 8.1 <=11.9 mg/dL TBH CREATININE URINE RANDOM 19.62(L) 20.00 - 300.00 mg/dL TBH PROTEIN CREATININE RATIO URINE 0.41 TBH 02/26/2025 1:40 PM EDT 02/26/2025 2:06 PM EDT Narrative CLINISYNC - 02/26/2025 2:14 PM EDT Erica Donnie [employer]o CN CLINISYNC Final Result CLINIS[facility]NC TBH documented in this encounter Visit Diagnoses Not on filedocumented in this encounter Additional Health Concerns Active Problems Noted Date Diagnosed Date OB Reminders 08/08/2024 documented as of this encounter Care Teams Shotblast Operator Relationship Specialty Start Date End Date Marysol Holden MD [address] [place] [address] PCP - General Family Medicine 02/14/23 Erica Hernandez CNM [address] [place], [place] [phone] Obstetrics and Gynecology 07/09/24 documented as of this encounter
--- OUTSIDE RECORDS SUMMARY | 2025-03-05 09:22 | XMS_ITS | Encounter Summary ---
Author Organization [facility] Address [address] [place] [address] Care Team Providers Care It Engineer Name Role Phone Marysol Holden MD Primary Care Provider [phone] Erica Hernandez CNM Unavailable [phone] Encounter Details Date Type Department Care Team (Late st Contact Info) Description 02/28/2025 Clinisync Result Encounter [facility] External Department Unsolicited Erica Hernandez, MARIANNA [address] [place], [place] [id number] Social History Tobacco Use Types Packs/Day Years [...] often do you attend chur ch or mandaen services? 1 to 4 times per year [...] care, and heating? Not very hard 10/30/2023 [facility] [place] of Occupat ional Health - Occupational Stress [...] place to sleep or slept in a correction (including now)? No 10/30/2023 Estimated Date of [...] AM EDT Telemedicine [facility] [address] [place] [address] Erica Hernandez, CNM [address] [place] [address] documented as of this encounter Goals Goal Patient Goal Type Associated Problems Recent Progress Patient-Stated? Author Reminders Care Plan OB Reminders No Open Scheduling, Background documented as of this encounter Procedures Procedure Name Priority Date/Time Associated Diagnosis Comments ALL CBC WITH AUTO DIFF Routine 02/28/2025 5:58 AM EDT documented in this encounter Results * (ABNORMAL) ALL CBC WITH AUTO DIFF (02/28/2025 5:58 AM EDT) TBH WBC 12.4(H) 4.0 - 11.0 10 3/uL TBH TBH RBC 3.23(L) 4.20 - 5.40 10 6/uL TBH TBH HGB 9.8(L) 12.0 - 16.0 g/dL TBH TBH HCT 29.3(L) 36.0 - 48.0 % TBH TBH MCV 90.7 81.0 - 99.0 fL TBH TBH MCH 30.3 26.7 - 34.0 pg TBH TBH MCHC 33.4 29.9 - 35.2 g/dL TBH TBH RDW 13.6 11.0 - 15.0 % TBH TBH PLT 197 150 - 450 10 3/uL TBH TBH MPV 10.5 9.5 - 13.5 fL TBH NEUTROPHILS PERCENT AUTO 69.3 43.0 - 75.0 % TBH LYMPHOCYTES PERCENT AUTO 22.0 20.5 - 60.0 % TBH MONOCYTES PERCENT AUTO 7.2 1.7 - 12.0 % TBH TBH EO % 0.3(L) 0.9 - 7.0 % TBH BASOPHILS PERCENT AUTO 0.2 0.2 - 2.0 % TBH IMMATURE GRANULOCYTES PCT AUTO 1.0(H) 0.0 - 0.5 % TBH NEUTROPHILS ABSOLUTE AUTO 8.6(H) 1.4 - 6.5 10 3/uL TBH LYMPHOCYTES ABSOLUTE AUTO 2.7 1.2 - 3.8 10 3/uL TBH MONOCYTES ABSOLUTE AUTO 0.9(H) 0.3 - 0.8 10 3/uL TBH TBH EO # 0.0 0.0 - 0.7 10 3/uL TBH BASOPHILS ABSOLUTE AUTO 0.0 0.0 - 0.1 10 3/uL TBH IMMATURE GRANULOCYTES ABS AUTO 0.12(H) 0.00 - 0.03 10 3/uL TBH 02/28/2025 5:58 AM EDT 02/28/2025 6:00 AM EDT Narrative CLIN[facility]NC - 02/28/2025 6:07 AM EDT us Erica Hernandez CNM CLIN[facility]NC Final Result CLIN[facility]NC TB documented in this encounter Visit Diagnoses Not on filedocumented in this encounter Additional Health Concerns Active Problems Noted Date Diagnosed Date OB Reminders 08/08/2024 documented as of this encounter Care Teams It Engineer Relationship Specialty Start Date End Date Marysol Holden MD [address] [place] [address] PCP - General Family Medicine 02/14/23 Erica Hernandez CNM [address] [place] [address] Obstetrics and Gynecology 07/09/24 documented as of this encounter
--- OUTSIDE RECORDS SUMMARY | 2025-03-05 09:22 | XMS_ITS | Clinical Summary ---
Author Organization [facility] Healthcare Address [address] [place] [address] Care Team Providers Care Solar Resource Assessor Name Role Phone Marysol Pizarro MD Primary Care Provider [phone] Justin HernandezM Unavailable [phone] Allergies No known active allergies Medications ferrous sulfate (Fe Tabs) 325 (65 Fe) MG EC tabletIndicatio ns:Anemia during in third trimester Take 1 tablet (325 mg) by mouth in the morning and 1 tablet (325 mg) in the evening. Take with meals. Do not crush, chew, or split. 60 tablet 11 01/21/2025 6 Active docusate sodium (Colace) 100 MG capsuleIndicati ons:Anemia during in third trimester Take 1 capsule (100 mg) by mouth in the morning and 1 capsule (100 mg) before bedtime. 60 capsule 3 01/21/2025 5 Active Active Problems Estimated Date of Delivery Comme nts Yes 03/17/2025 Based on last me nstrual period of 06/10/2024 (Exact Date) No known active problems Encounters Date Type Department Care Team Description 03/04/2025 Patient Outreach [facility] [address] [place] [phone] Marei Muhammad LPN 03/04/2025 Results Follow-Up [facility] [address] [place] [id number] Justin Hernandez CNM 03/02/2025 Abstract [facility] FM [address] [facility] ([place], [place] [address] Marysol Pizarro MD 02/28/2025 Clinisync Result Encounter [facility] External Department Unsolicited Justin Hernandez, CNM 02/27/2025 Clinisync Result Encounter [facility] External Department Unsolicited Justin Hernandez, CNM 02/26/2025 10:45 AM EDT Ancillary Procedure [facility] ULTRASOUND [address] [place] [address] Large for dates 02/26/2025 10:30 AM EDT Routine [facility] [address] [place] [phone] Justin Hernandez CNM Elevated blood pressure affecting in third trimester, antepartum (Primary Dx); Encounter for care of first , third trimester; Ankle edema; Large for dates 02/26/2025 Clinisync Result Encounter [facility] External Department Unsolicited Justin Hernandez, CNM 02/26/2025 Clinisync Result Encounter [facility] External Department Unsolicited Justin Hernandez, CNM 02/26/2025 Bamboo flowsheet [facility] [address] [place] [phone] Justin Hernandez CNM 02/26/2025 Travel 02/20/2025 Travel 02/19/2025 1:30 PM EDT Routine [facility] [address] [place] [address] Justin Hernandez CNM Encounter for care of first , third trimester (Primary Dx); screening for streptococcus B; Large for dates; Ankle edema 02/19/2025 Bamboo flowsheet [facility] [address] [place] [phone] Justin Hernandez, MARIANNA 02/14/2025 Travel 02/05/2025 1:30 PM EDT Routine [facility] [address] [place] [phone] Justin Hernandez CNM Encounter for supervision of other normal , third trimester (Primary Dx); Swelling of both ankles 02/05/2025 Bamboo flowsheet [facility] [address] [place] [address] Justin Hernandez CNM 02/02/2025 Travel 01/22/2025 1:30 PM EDT Routine [facility] [address] [place] [address] Justin Hernandez CNM Encounter for supervision of other normal , third trimester (Primary Dx) 01/22/2025 Bamboo flowsheet [facility] [address] [place] [address] Justin Hernandez CNM 01/21/2025 Results Follow-Up [facility] [address] [place] [address] Oanh Pettit MA 01/21/2025 Refill [facility] [address] [place] [address] Oanh Pettit MA Anemia during in third trimester 01/17/2025 Travel 01/08/2025 2:00 PM EDT Ancillary Procedure [facility]TR[facility] [address] [place] [address] related condition in third trimester 01/08/2025 Travel 01/03/2025 Travel 12/25/2024 1:30 PM EDT Routine [facility] [address] [place] [address] Justin Hernandez CNM Encounter for supervision of other normal , third trimester (Primary Dx); Screening for diabetes mellitus (DM); Screening for iron deficiency anemia; related condition in third trimester 12/25/2024 Bamboo flowsheet [facility] [address] [place] [address] Justin Hernandez CNM 12/18/2024 Travel from Last 3 Months Family History Medical History Relation Name Comments Cancer Maternal Grandfather Cancer Maternal Grandmother Diabetes Maternal Grandmother Heart disease Maternal Grandmother Hypertension Maternal Grandmother Cancer Paternal Grandfather Cancer Paternal Grandmother Relation Name Status Comments Father Alive Maternal Grandfather Maternal Grandmother Mother Alive Paternal Grandfather Paternal Grandmother Social History Tobacco Use Types Packs/Day Years Used Date Smoking Tobacco: Never Smokeless Tobacco: Never Tobacco Cessation:Counseling Given: Not Answered Alcohol Use Standard Drinks/Week Comments Not Currently [...] often do you attend chur ch or hoahaoism services? 1 to 4 times per year 10/30/2023 Do you belong to any clubs o r organizations such as catholic groups, unions, fraternal or athletic groups, or [...] Recorded Patient Health Questionnaire-2 Score 0 03/04/2025 [facility] - Occupational [...] AM EST Sexual Orientation Not on file Last Filed Vital Signs Vital Sign Reading Time Taken Comments Blood Pressure 150/100 02/26/2025 10:43 AM EDT re check 130/90 Pulse 78 05/13/2024 5:52 PM EDT Temperature 37 C (98.6 F) 11/13/2023 1:25 PM EST Respiratory Rate 18 05/13/2024 5:52 PM EDT Oxygen Saturation 99% 05/13/2024 5:52 PM EDT Inhaled Oxygen Concentration - - Weight 86.6 kg (191 lb) 02/26/2025 10:43 AM EDT Height 162.6 cm (5' 4 ) 05/13/2024 5:52 PM EDT Body Mass Index 32.79 05/13/2024 5:52 PM EDT Plan of Treatment Upcoming Encounters Date Type Department Care Team (Late st Contact Info) Description 03/13/2025 11:30 AM EDT Telemedicine [facility] [address] [place] [address] Justin Hernandez, CNM [address] [place], [place] [phone] Health Maintenance Due Date Last Done Comments Influenza Vaccine (Season Ended) 2025 08/12/20 20 Goals Goal Patient Goal Type Associated Problems Recent Progress Patient-Stated? Author Reminders Care Plan OB Reminders No Open Scheduling, Background Procedures Procedure Name Priority Date/Time Associated Diagnosis Comments ALL CBC WITH AUTO DIFF Routine 5 5:58 AM EDT ALL CBC WITH AUTO DIFF Routine 1:38 PM EDT US OB BPP W NON-STRESS 02/26/2025 3:03 PM EDT ALL URIC ACID Routine 02/26/2025 1:56 PM EDT ALL LDH Routine 02/26/2025 1:56 PM EDT [facility] CMP (CMP) (FOR REMOTE [facility] USE) Routine 02/26/2025 1:56 PM EDT ALL CBC WITH AUTO DIFF Routine 1:56 PM EDT [facility] DRUG SCREEN RAPID (URINE) Routine 02/26/2025 1:40 PM EDT [facility] URINE T PROTEIN CREAT RATIO Routine 02/26/2025 1:40 PM EDT US OB FOLLOW UP TRANSABDOMINAL APPROACH Routine 02/26/2025 11:09 AM EDT Large for dates STREPTOCCOUS, GROUP B CULTURE Routine 02/19/2025 3:08 PM EDT screening for streptococcus B US OB FOLLOW UP TRANSABDOMINAL APPROACH Routine 01/08/2025 2:32 PM EDT related condition in third trimester CBC Routine 12/25/2024 1:58 PM EDT Screening for iron deficiency anemia GLUCOSE, GESTATIONAL SCREEN (50G)-135 CUTOFF Routine 12/25/2024 1:58 PM EDT Screening for diabetes mellitus (DM) from Last 3 Months Results * (ABNORMAL) ALL CBC WITH AUTO DIFF (02/28/2025 5:58 AM EDT) Only the most recent of3 resultswithin the time period is included. [facility] WBC 12.4(H) 4.0 - 11.0 10 [...] CLINISYNC - 02/28/2025 6:07 AM EDT us Justin Hernandez CNM CLINISYNC Final Result [facility] * US OB BPP W NON-STRESS (02/26/2025 3:03 PM EDT) Anatomical Region Laterality Modality Other 02/26/2025 3:03 PM EDT Narrative 02/26/2025 3:05 [place] [address] Ultrasound Report Signed Patient: ARON HODGES MR#: [id number] : 2000 Acct:[id number] Age/Sex: 24 / F ADM Date: Loc: [facility] 254-[address]: JUSTIN HERNANDEZ APRN, CNM Ordering Physician: JUSTIN HERNANDEZ APRN, CNM Date of Service: 02/26/25 Procedure(s): US OB BPP w non-stress Accession Number(s): [id number] cc: MARYSOL PIZARRO ; JUSTIN HERNANDEZ APRN, CNM [place] [address] Patient Name: ARON HODGES MRN: [id number] date: 2000 Sex: F Assigned Patient Location: [facility] Current Patient Location: [facility] Accession/Order Number: [id number] Exam Date: 02/26/2025 15:02 Report Date: 02/26/2025 [...] Hou M.D. 02/26/2025 3:03 PM Dictation Location: [place] [address] Electronically authenticated by: [id number] Y Date: 02/26/2025 15:03 Dictated By: Otf Hou D.O. Signed By: 02/26/25 1505 DD/ 1503 TD/TT: Hand Outside Cutter: Procedure Note Radiology, Radiologist, - 02/26/2025 [place] [address] Ultrasound Report Signed Patient: ARON HODGES NMR#: [id number] : 2000Acct:[id number] Age/Sex: 24 / FADM Date: Loc: [facility] 254-[address]: JUSTIN HERNANDEZ APRN, CNM Ordering Physician: JUSTIN HERNANDEZ APRN, CNM Date of Service: 02/26/25 Procedure(s): US OB BPP w non-stress Accession Number(s): [id number] cc: MARYSOL PIZARRO ; JUSTIN HERNANDEZ APRN, CNM [facility] [address] [place] [id number] Patient Name: ARON HODGES MRN: [id number] date: 2000 Sex: F Assigned Patient Location: [facility] Current Patient Location: [facility] Accession/Order Number: [id number] Exam Date: 02/26/2025 15:02 Report Date: 02/26/2025 [...] Hou M.D. 02/26/2025 3:03 PM Dictation Location: [place] [address] Electronically authenticated by: [id number] Y Date: 5:03 Dictated By: Otf Hou D.O. Signed By:02/26/25 1505 DD/ 1503 TD/TT: Hand Outside Cutter: us Justin Hernandez CNM CLINISYNC IMAGING Final Resu lt * (ABNORMAL) [facility] CMP (CMP) (FOR REMOTE [facility] USE) (02/26/2025 1:56 PM EDT) SODIUM 137 136 - 145 mmol/L [facility]H POTASSIUM 3.7 3.5 - 5.1 mmol/L [facility] CHLORIDE 104 98 - 107 mmol/L [facility]H CARBON DIOXIDE 24.4 21.0 - 32.0 mmol/L TBH ANION GAP 12.3 [facility]H GLUCOSE 99 74 - 106 mg/dL [facility] BLOOD UREA NITROGEN 12.0 7.0 - 18.0 mg/dL [facility] CREATININE 0.76 0.55 - 1.02 mg/dL TBH TBH EGFR-AF PU[place] RICAN >60 >=60 mL/min/1. 73m 2 TBH TBH EGFR-NON AF PU[place] R[place] >60 >=60 mL/min/1. 73m 2 TBH BUN [...] CLINISYNC - 02/26/2025 2:31 PM EDT us Justin TRIMBLE CLINISYNC Final Result CLINISYNC TB * ALL URIC ACID (02/26/2025 1:56 PM EDT) URIC ACID 4.3 2.6 - 6.0 mg/dL TBH 02/26/2025 1:56 PM EDT 02/26/2025 2:09 PM EDT Narrative CLINISYNC - 02/26/2025 2:32 PM EDT us Justin Hernandez CN CLINISYNC Final Result Performing Organization Address [facility]/State/ZIP Co de Phone Number CLINISYNC TB * ALL LDH (02/26/2025 1:56 PM EDT) LACTATE DEHYDROGENASE 217 81 - 234 U/L TB 02/26/2025 1:56 PM EDT 02/26/2025 2:09 PM EDT Narrative CLINISYNC - 02/26/2025 2:31 PM EDT us Justin Hernandez NAI CLINISYNC Final Result Performing Organization Address [facility]/ZIP Co de Phone Number CLINISYUT TB * (ABNORMAL) TB URINE T PROTEIN CREAT RATIO (02/26/2025 1:40 PM EDT) TOTAL PROTEIN URINE RANDOM 8.1 <=11.9 mg/dL [facility]H CREATININE URINE RANDOM 19.62(L) 20.00 - 300.00 mg/dL TBH PROTEIN CREATININE RATIO URINE 0.41 TB 02/26/2025 1:40 PM EDT 02/26/2025 2:06 PM EDT Narrative CLINISYNC - 02/26/2025 2:14 PM EDT Justinlu Mattsonrobert NAI CLINISYNC Final Result Performing Organization Address [facility] Co de Phone Number CLINISYNC TB * [facility]H DRUG SCREEN RAPID (URINE) (02/26/2025 1:40 PM EDT) CANNABINOID SCREEN URINE NEGATIVE NEGATIVE TBH PHENCYCLIDINE [...] (Benzodiazepines): 150 ng/mL BUP (Buprenorphine): 10 ng/mL BHUPENDRA (Cocaine): 150 ng/mL mAMP (Methamphetamine): 500 ng/mL MTD (Methadone): 200 ng/mL OPI (Opiates): 100 ng/mL OXY (Oxycodone): 100 ng/mL PCP (Phencyclidine): 25 ng/mL THC (Cannabinoids): 50 ng/mL TCA (Trycyclic Antidepressants): 300 ng/mL 02/26/2025 1:40 PM EDT 02/27/2025 2:54 AM EDT Narrative CLINISYNC - 02/27/2025 3:11 AM EDT us Justin Hernandez CNM CLINISYNC Final Result [facility] * US OB follow up transabdominal approach (02/26/2025 11:09 AM EDT) Only the most recent of2 resultswithin the time period is included. Anatomical Region Laterality Modality Body Ultrasound 02/26/2025 [...] report is generated using voice recognition reporting ([employer] On occasion [employer] erroneously drops words from the report or [...] report is generated using voice recognition reporting ([employer]On occasion [employer] erroneously drops words from the report orreplaces the spoken word with similar sounding words. Please call with anyquestions/concerns regarding this report.* Dictated and transcribed 02/26/2025/jf This report has been electronically signed and approved by theinterpreting radiologist. us Justin Donnie TRIMBLEM IMG OB US PROCEDURES Final R esult * STREPTOCCOUS, GROUP B CULTURE (02/19/2025 3:08 PM EDT) MICRO NUMBER [id number] [facility] SPECIMEN QUALITY Adequate [facility] SOURCE VAGINAL/ANOR [...] Performing Organization Information Site ID: QPT Name: [facility] Address: [address] [place] [address], [address] [place] [phone] Director: Nabil Weston MD us Justin Hernandez CNM LAB BODY FLUIDS AND STOOLS O RDERABLES Final Result [facility] * GLUCOSE, GESTATIONAL SCREEN (50G)-135 CUTOFF (12/25/2024 1:58 PM EDT) GLUCOSE, GESTATIONAL SCREEN (50G)-135 CUTOFF 121 <135 mg/dL [facility] 12/25/2024 1:58 PM EDT 12/25/2024 2:02 PM EDT Narrative Resulting Agency Comment Performing Organization Information Site ID: QPT Name: [facility] Address: [address] [place] [address], [address] [place] [phone] Director: Nabil Weston MD us Justin Hernandez CNM LAB BLOOD ORDERABLES Final R esult [facility] * (ABNORMAL) CBC (12/25/2024 1:58 PM EDT) WHITE BLOOD CELL COUNT 7.7 3.8 - 10.8 Thousand/u L [facility] RED BLOOD CELL COUNT 3.28(L) 3.80 - 5.10 Million/uL [facility] HEMOGLOBIN 10.1(L) 11.7 - 15.5 g/dL [facility] HEMATOCRIT 30.2(L) 35.0 - 45.0 % [facility] MCV 92.1 80.0 - 100.0 fL [facility] MCH 30.8 27.0 - 33.0 pg [facility] MCHC 33.4 32.0 - 36.0 g/dL [facility] Comment: For adults, a slight decrease in the calculated MCHC value (in the range of 30 to 32 g/dL) is most likely not clinically significant; however, it should be interpreted with caution in correlation with other red cell parameters and the patient's clinical condition. RDW 11.5 11.0 - 15.0 % [facility] PLATELET COUNT 240 140 - 400 Thousand/u L [facility] MPV 10.0 7.5 - 12.5 fL [facility] Blood Venous blood specimen / Unknown 12/25/2024 1:58 PM EDT 12/25/2024 2:02 PM EDT Narrative Resulting Agency Comment Performing Organization Information Site ID: QPT Name: [facility] Address: [address] [place] [address], [address] [place] [phone] Director: Nabil Weston MD us Justin Hernandez CNM LAB BLOOD ORDERABLES Final R esult [facility] from Last 3 Months Additional Health Concerns Active Problems Noted Date Diagnosed Date OB Reminders 08/08/[address] [place] [place] [address] Care Teams Solar Resource Assessor Relationship Specialty Start Date End Date Marysol Pizarro MD [address], [place] [phone] PCP - General Family Medicine 02/14/23 Justin Hernandez CNM [address], [place] [phone] Obstetrics and Gynecology 07/09/24
[2025-03-05 12:22] VITALS: BP 113/77; PULSE 90; TEMP 36.8; O2SAT 97
--- NOTE | 2025-03-05 12:25 | PC.NURSE ---
Karina, her mom and 6 day old Prabhu arrive for follow up. Karina states feels well, tired but well. States baby is doing well, feeding multiple diapers and no too fussy. Karina denies complaints, states bottom getting better, stitches just itchy at times. Continues to use hazel-bottle and tucks. Milk is in , nipples intact. reports baby prefers right breast and fights latch on left side. Has been pumping to remove milk when infant does not nurse left breast. VSS and assessment WNL for Karina. Baby Prabhu with VSS and assessment WNL. Mom reports 5 wets since midnight, baby changed for wet and large yellow brown stool X 2 at visit. had had 1 other stool since midnight. Infant to breast, to left side in cross cradle, positioning awkward for mom. To football hold infant latches well and feeds for 20 min. active with obvious swallows. To 2nd breast for 12 min. prior to releasing latch. Burped and retains feeding. Mom states yea, that is basically how it goes each feed . Much praise offered and validation that can still be difficult learning when things are going well. Reminder for MOMS group offered and no further questions at this time. Family leaves ambulatory.
== END 2025-03-05 12:25 | disposition home or self-care (01) ==
LOC: FBCO 09:18
PROVIDERS: PCP Family Medicine; Visit Provider Midwife
DX: Z39.1 Encounter for care and examination of lactating mother (principal)